=== PATIENT | female | born 1955 | race Caucasian/White ===

== ENCOUNTER → 2020-02-03 13:03 | Outpatient (BNVA) | payer MEDICARE, SELFPAY | PROVIDERS: Family Provider Family Medicine; PCP Family Medicine; Visit Provider Internal Medicine Rheumatology | DX: M18.0 Bilateral primary osteoarthritis of first carpometacarpal joints (principal); Z79.899 Other long term (current) drug therapy; Z11.59 Encounter for screening for other viral diseases; M19.041 Primary osteoarthritis, right hand; M19.042 Primary osteoarthritis, left hand; M17.0 Bilateral primary osteoarthritis of knee; G89.29 Other chronic pain; M54.5 Low back pain | CPT/HCPCS: 36415; 82306; 86431; 86480; 86704; 86803; 87340; 99204 ==

== ENCOUNTER 2020-02-06 11:02 | Outpatient (CLI) | payer MEDICARE, SELFPAY ==
--- NOTE | 2020-02-06 11:08 | XR_ITS ---
WS: [id number] Left foot, 3 views, 02/06/2020 Clinical Data: inflammatory arthritis Comparison: None. Findings: No fractures or dislocations are seen. There is a bunion at the head of the left first metatarsal. Th e remainder the joint spaces is normal. There is a small Achilles spur. XR/XR foot LT min 3V* [id number] Impression: Bunion at the head of the left first metatarsal.
--- NOTE | 2020-02-06 11:08 | XR_ITS ---
WS: [id number] Right foot, 3 views, 02/06/2020 Clinical Data: inflammatory arthritis Comparison: None. Findings: No fractures or dislocations are seen. There is a bunion at the head of the right first metatarsal. T here is osteoarthritic change of the articulations between the second and third metatarsals with the cuneiforms. There is a small Achilles spur. XR/XR foot RT min 3V* [id number] Impression: 1. Large bunion at head of the right first metatarsal. 2. Osteoarthritic changes at the bases of the right second and third metatarsal s.
--- NOTE | 2020-02-06 11:08 | XR_ITS ---
WS: [id number] Chest 2 views, 02/06/2020 Clinical Data: inflammatory arthritis Comparison: None. Findings: No nodules, masses or effusions are seen. The heart is normal. The pulmonary vascularity is not increased. No pneumonia or pneumothorax is seen. The aortic arch and descending aorta are minima lly tortuous. XR/XR chest 2V* [id number] Impression: Atherosclerosis.
--- NOTE | 2020-02-06 11:08 | XR_ITS ---
WS: [id number] Left hand, 3 views, 02/06/2020 Clinical Data: inflammatory arthritis Comparison: None. Findings: No fractures or dislocations are seen. The soft tissues are unremarkable. There is osteoarthritic eleonora nge of the left second through fourth DIP joints. There is osteoarthritic change at the base of the l eft first metacarpal as it articulates with the trapezium. There is osteoarthritic change of the left first IP joint. XR/XR hand LT min 3V* [id number] Impression: Osteoarthritis of the left second through fourth DIP joints and at the base of the left first metacarpal. Osteoarthritis of the IP joint of the left thumb.
--- NOTE | 2020-02-06 11:08 | XR_ITS ---
WS: [id number] Pelvis, AP view, 02/06/2020 Clinical Data: inflammatory arthritis Comparison: None. Findings: No fractures or dislocations are seen. The SI joints and pubic symphysis are intact. The soft tissues are not remarkable. The hips are normal. There is a large amount of fecal material in the ascending colon and rectum. XR/XR pelvis 1-2V* [id number] Impression: Negative AP pelvis.
--- NOTE | 2020-02-06 11:08 | XR_ITS ---
WS: [id number] Right hand, 3 views, 02/06/2020 Clinical Data: inflammatory arthritis Comparison: None. Findings: No fractures or dislocations are seen. The soft tissues are unremarkable. There is osteoa rthritic change of the right third and fourth DIP joints. XR/XR hand RT min 3V* [id number] Impression: Osteoarthritis of the right third and fourth DIP joints.
== END 2020-02-06 11:03 | disposition home or self-care (01) ==
LOC: RADWPI 11:07
PROVIDERS: Family Provider Family Medicine; PCP Family Medicine; Visit Provider Internal Medicine Rheumatology
DX: M19.90 Unspecified osteoarthritis, unspecified site (principal); I70.90 Unspecified atherosclerosis; M21.611 Bunion of right foot; M21.612 Bunion of left foot; M19.042 Primary osteoarthritis, left hand; M19.041 Primary osteoarthritis, right hand
CPT/HCPCS: 71046; 72170; 73130; 73630

== ENCOUNTER → 2020-03-31 10:49 | Outpatient (BNVA) | payer MEDICARE, SELFPAY | PROVIDERS: Family Provider Family Medicine; PCP Family Medicine; Visit Provider Internal Medicine Rheumatology | DX: Z79.899 Other long term (current) drug therapy (principal) | CPT/HCPCS: 36415; 80076; 82565; 85025; 85651; 86140 ==

== ENCOUNTER → 2020-04-05 11:13 | Outpatient (BNVA) | payer MEDICARE, BC, SELFPAY | PROVIDERS: Family Provider Family Medicine; PCP Family Medicine; Visit Provider Internal Medicine Rheumatology | DX: M06.041 Rheumatoid arthritis without rheumatoid factor, right hand (principal); M06.042 Rheumatoid arthritis without rheumatoid factor, left hand; M17.0 Bilateral primary osteoarthritis of knee; M19.041 Primary osteoarthritis, right hand; M19.042 Primary osteoarthritis, left hand; Z79.52 Long term (current) use of systemic steroids; Z79.899 Other long term (current) drug therapy | CPT/HCPCS: 99214 ==

== ENCOUNTER 2020-04-09 13:52 | Outpatient (CLI) | payer MEDICARE, OTHER, SELFPAY ==
--- NOTE | 2020-04-09 14:15 | XR_ITS ---
WS: [id number] SCREENING DEXA SCAN [employer] CLINICAL INFORMATION: screening for osteoporosis COMPARISON: None. FINDINGS: The L1-L4 bone mineral density measures 1.150 g/cm2. This corresponds to a T score score of -0.3 and Z score of 1.1. Left femoral neck bone mineral density measures 0.904 g/cm2. This corresponds to a T score of -0.8 an d Z score of 0.3. Right femoral neck bone mineral density measures 0.916 g/cm2. This corresponds to a T score -0.7of an d Z score of 0.4. Mean femoral neck bone mineral density measures 0.910 g/cm2. This corresponds to a T score of -0.8 an d Z score of 0.3. XR/XR DEXA axial skeleton* [id number] IMPRESSION: Normal bone mineralization. Patient's FRAX calculated 10 year probability for major osteoporotic fracture i s 16.4 % and osteoporotic hip fracture is 1.8%.
== END 2020-04-09 13:53 | disposition home or self-care (01) ==
LOC: RADWPI 13:58
PROVIDERS: Family Provider Family Medicine; PCP Family Medicine; Visit Provider Internal Medicine Rheumatology
DX: Z13.820 Encounter for screening for osteoporosis (principal)
CPT/HCPCS: 77080

== ENCOUNTER → 2020-07-07 08:26 | Outpatient (BNVA) | payer MEDICARE, BC, SELFPAY | PROVIDERS: Family Provider Family Medicine; PCP Family Medicine; Visit Provider Internal Medicine Rheumatology | DX: M06.041 Rheumatoid arthritis without rheumatoid factor, right hand (principal); M06.042 Rheumatoid arthritis without rheumatoid factor, left hand; M15.4 Erosive (osteo)arthritis; Z79.899 Other long term (current) drug therapy | CPT/HCPCS: 99214 ==

== ENCOUNTER → 2020-11-01 13:46 | Outpatient (BNVA) | payer MEDICARE, OTHER, SELFPAY | PROVIDERS: Family Provider Family Medicine; PCP Family Medicine; Visit Provider Internal Medicine Rheumatology | DX: M06.041 Rheumatoid arthritis without rheumatoid factor, right hand (principal); M06.042 Rheumatoid arthritis without rheumatoid factor, left hand; Z79.899 Other long term (current) drug therapy; M15.4 Erosive (osteo)arthritis; G89.29 Other chronic pain; M54.5 Low back pain | CPT/HCPCS: 99214 ==

== ENCOUNTER 2021-05-10 15:12 | Outpatient (CLI) | payer MEDICARE, OTHER, SELFPAY ==
--- NOTE | 2021-05-10 15:21 | US_ITS ---
WS: [id number] INDICATION: Swelling left clavicle TECHNIQUE: Ultrasound soft tissue left clavicle. FINDINGS: Ultrasound soft tissue left clavicle area of interest. No suspicious abnormalities in the a emily of concern. No cystic or solid lesions. US/US soft tissue/extremity [id number] IMPRESSION: No suspicious abnormalities in the area of concern.
== END 2021-05-10 15:13 | disposition home or self-care (01) ==
LOC: US 15:18
PROVIDERS: PCP Family Medicine; Visit Provider Family Medicine
DX: R22.1 Localized swelling, mass and lump, neck (principal)
CPT/HCPCS: 76882

== ENCOUNTER → 2022-02-23 13:38 | Outpatient (BNVA) | payer MEDICARE, OTHER, SELFPAY | PROVIDERS: PCP Family Medicine; Visit Provider Internal Medicine Rheumatology | DX: M06.041 Rheumatoid arthritis without rheumatoid factor, right hand (principal); M06.042 Rheumatoid arthritis without rheumatoid factor, left hand; Z79.899 Other long term (current) drug therapy; Z71.89 Other specified counseling; M15.9 Polyosteoarthritis, unspecified; K21.9 Gastro-esophageal reflux disease without esophagitis; E55.9 Vitamin D deficiency, unspecified | CPT/HCPCS: 80076; 82565; 85025; 86140; 99214 ==

== ENCOUNTER → 2022-05-31 09:21 | Outpatient (BNVA) | payer MEDICARE, OTHER, SELFPAY | PROVIDERS: PCP Family Medicine; Visit Provider Internal Medicine Rheumatology | DX: M06.041 Rheumatoid arthritis without rheumatoid factor, right hand (principal); M06.042 Rheumatoid arthritis without rheumatoid factor, left hand; M15.4 Erosive (osteo)arthritis; Z79.899 Other long term (current) drug therapy; Z71.89 Other specified counseling; E55.9 Vitamin D deficiency, unspecified; K21.9 Gastro-esophageal reflux disease without esophagitis | CPT/HCPCS: 99214 ==

== ENCOUNTER → 2022-06-22 09:04 | Outpatient (BNVA) | payer MEDICARE, OTHER, SELFPAY | PROVIDERS: PCP Family Medicine; Visit Provider Family Medicine | DX: Z71.89 Other specified counseling (principal); M18.0 Bilateral primary osteoarthritis of first carpometacarpal joints; M06.041 Rheumatoid arthritis without rheumatoid factor, right hand; M06.042 Rheumatoid arthritis without rheumatoid factor, left hand; Z79.899 Other long term (current) drug therapy | CPT/HCPCS: 80076; 82565; 85025 ==

== ENCOUNTER → 2022-09-06 09:39 | Outpatient (BNVA) | payer MEDICARE, OTHER, SELFPAY | PROVIDERS: PCP Family Medicine; Visit Provider Internal Medicine Rheumatology | DX: M06.041 Rheumatoid arthritis without rheumatoid factor, right hand (principal); M06.042 Rheumatoid arthritis without rheumatoid factor, left hand; Z79.899 Other long term (current) drug therapy; M15.4 Erosive (osteo)arthritis; Z71.89 Other specified counseling; Z79.52 Long term (current) use of systemic steroids; G89.4 Chronic pain syndrome; M54.50 Low back pain, unspecified | CPT/HCPCS: 72040; 72072; 72100; 73562; 99214 ==

== ENCOUNTER → 2022-10-30 08:55 | Outpatient (BNVA) | payer MEDICARE, OTHER, SELFPAY | PROVIDERS: PCP Family Medicine; Visit Provider Family Medicine | DX: M06.041 Rheumatoid arthritis without rheumatoid factor, right hand (principal); M06.042 Rheumatoid arthritis without rheumatoid factor, left hand; Z79.899 Other long term (current) drug therapy | CPT/HCPCS: 80076; 82565; 85025; 86140 ==

== ENCOUNTER → 2022-12-06 09:23 | Outpatient (BNVA) | payer MEDICARE, OTHER, SELFPAY | PROVIDERS: PCP Clinical Nurse Specialist Adult Health; Visit Provider Internal Medicine Rheumatology | DX: M06.041 Rheumatoid arthritis without rheumatoid factor, right hand (principal); Z79.899 Other long term (current) drug therapy; Z71.89 Other specified counseling; M15.4 Erosive (osteo)arthritis; M06.042 Rheumatoid arthritis without rheumatoid factor, left hand | CPT/HCPCS: 99214 ==

== ENCOUNTER 2022-12-19 10:17 | Outpatient (CLI) | payer MEDICARE, OTHER, SELFPAY ==
--- NOTE | 2022-12-19 10:32 | XR_ITS ---
WS: [id number] Exam: XR abdomen min 2V [id number] Date/Time of Exam: 12/19/2022 10:57 AM Reason For Exam: left flank pain, vomiting No bowel obstruction or free air. No sign of organ enlargement. Regional bony elements are intact. XR/XR abdomen min 2V [id number] IMPRESSION: 1. No acute abdominal finding.
== END 2022-12-19 10:18 | disposition home or self-care (01) ==
PROVIDERS: PCP Clinical Nurse Specialist Adult Health; Visit Provider Clinical Nurse Specialist Adult Health
DX: K59.00 Constipation, unspecified (principal); R10.9 Unspecified abdominal pain; R11.10 Vomiting, unspecified; E86.0 Dehydration
CPT/HCPCS: 74019; 80053; 81000; 85025; 85651; 86140; 87086

== ENCOUNTER 2022-12-21 20:42 | Emergency (ER) | payer MEDICARE, OTHER, SELFPAY ==
[2022-12-21 21:15] VITALS: BMI 31.0
[2022-12-21 21:18] VITALS: BP 122/67; PULSE 71; RESP 16; TEMP 36.4; O2SAT 99
[2022-12-21] MEDS: lactated ringers 1,000 ML 999 ML IV (22:04)
[2022-12-21] MEDS: potassium bicarb 25 mEq Tablet 50 MEQ PO (22:04)
[2022-12-21] MEDS: ondansetron 2 mg/ML SDV 2 mL 4 MG IVP (22:04)
--- NOTE | 2022-12-21 22:05 | ED_ITS ---
HPI - Recheck/Abnormal Lab/Rx General: Chief Complaint: Recheck/Abnormal Lab/Rx Stated Complaint: Doc called Time Seen by Provider: 12/21/22 21:50 Source: patient and family Mode of arrival: ambulatory Limitations: no limitations History of Present Illness: Patient apparently was referred to the emergency department by her primary care doctor. Apparently she had some laboratories obtained earlier today which showed a potassium that was low and she was referred for care. She apparently had been sick within the week or so prior which included some vomiting and some diarrhea. Apparently had been feeling weak and tired and had some issues with low blood pressure and had most of her antihypertensive discontinued this week.History of multiple sclerosis history of multiple sclerosis she denies any fevers or chills abdominal pain currently. She states she has muscle cramps and achiness. She states she feels tired and not as energetic as normal. She states there was no blood in her stools. No black tarry stools. She has not been out of the country on travel, been exposed to antibiotics recently, had any recent illness exposure. She has rheumatoid arthritis and takes medications for that condition. Does not have a history of taking potassium or magnesium or other electrolyte replacements. No chest pain palpitations etc. Associated symptoms: malaise Review of Systems Const: Reports: malaise; Denies: fever(s) or chills Eyes: Denies: change in vision ENMT: Denies: throat pain, odynophagia, nasal discharge or nasal congestion Card: Denies: chest pain, palpitations, irregular heart rhythm, syncope or pre-syncope Resp: Denies: dyspnea, productive cough or non-productive cough GI: Reports: vomiting and diarrhea; Denies: hematemesis, hematochezia or melena : Reports: oliguria; Denies: flank pain, difficulty voiding, dysuria or urinary frequency Musc: Reports: muscle cramps; Denies: neck pain, back pain, extremity pain or extremity swelling Skin/Breast: Denies: rash or pruritus Neuro: Denies: headache(s), numbness in extremities or weakness in extremities PFS ED PFSH: Medical History Erosive osteoarthritis of both hands High risk medication use Hypertension Immunization counseling Inflammatory arthritis Joint pain Osteoarthritis of carpometacarpal (CMC) joint of both thumbs Osteoarthritis of hands, bilateral Osteoarthritis of knees, bilateral Seronegative rheumatoid arthritis of both hands Surgical History History of shoulder surgery left Family History Other Bleeding disorder Cancer Diabetes Family history of premature coronary artery disease Hyperlipidemia Stroke Denies family history of Rheumatoid arthritis Lupus CAD (coronary artery disease) Anesthesia complication Social History Smoking and tobacco status: never smoked Alcohol intake: never Substance/Drug Use: never Physical Exam Narrative: EXAM NARRATIVE: The patient is alert and in no acute distress. She does not appear to be acutely ill at this point. She answers questions in a goal-directed fashion. Const: COMMON NORMALS: no acute distress, average body habitus and patient oriented x3 GENERAL APPEARANCE: cooperative NUTRITIONAL APPEARANCE: overweight ORIENTATION/CONSCIOUSNESS: Yes awake HENMT: COMMON NORMALS: normocephalic, Normal nasal mucous membranes and turbinates present, moist oral mucous membranes and oropharynx normal HEAD & SCALP: normocephalic NOSE: Normal nasal mucous membranes and turbinates present Eye: COMMON NORMALS: Equal, round and reactive pupils present, EOMs intact bilaterally and conjunctivae normal CONJUNCTIVA: Yes conjunctivae normal PUPIL: Yes Equal, round and reactive pupils present Neck/C-Spine: COMMON NORMALS: full ROM, no lymphadenopathy and no JVD Chest: COMMONS NORMALS: normal inspection of the chest Resp: COMMON NORMALS: normal respiratory effort, No retractions, No use of accessory muscles and clear to auscultation bilaterally AUSCULTATION: clear to auscultation bilaterally Cardio: COMMON NORMALS: no JVD, regular rate, regular rhythm, No murmurs present (Cardio) and Peripheral pulses 2+ throughout RATE: regular rate RHYTHM: regular rhythm PERIPHERAL PULSES: Peripheral pulses 2+ throughout GI: COMMON NORMALS: Normal to inspection, nondistended, normoactive bowel sounds present, Soft to palpation, non-tender, No hepatosplenomegaly present and no masses PALPATION: Yes Soft to palpation and Yes No hepatosplenomegaly present : COMMON NORMALS: Yes no CVA tenderness BLADDER/KIDNEY EXAM: Yes no CVA tenderness Back/Pelvis: COMMON NORMALS: no CVA tenderness, thoracic and lumbar spine normal to inspection, no thoracic nor lumbar tenderness, thoraco-lumbar ROM normal and straight leg raise negative bilaterally Extremity: COMMON NORMALS: normal to inspection, capillary refill normal, no calf tenderness and no pedal edema NARRATIVE EXTREMITY EXAM: She has generalized muscle tenderness to palpation. Neuro: COMMON NORMALS: patient oriented x3, moves all extremities, no focal motor deficits and no sensory deficits noted Psych: COMMON NORMALS: mental status grossly normal Skin: COMMON NORMALS: no rashes or lesions noted, no wounds, turgor normal and no jaundice GENERAL SKIN EXAM: no rashes or lesions noted and turgor normal Course Reevaluation(s): Reevaluation #1: Patient was reevaluated. She states subjectively she feels much better and actually looks subjectively better. Repeat chemistry here revealed her potassium here at our lab was 3.1 which is certainly possible for laboratory variance but certainly reassuring in the fact that we gave her an extra 50 mill equivalents p.o. and another 15 mill equivalents in her lactated Ringer's. We will continue oral replacement for the next week. She does have some elevations in her transaminases and alk phos which are likely due to her acute illness. She has no abdominal tenderness she has normal total bilirubin. She has not had any history of biliary colic or any other concerning findings for gallbladder disease at this time. She is stable to be discharged to continue her oral potassium replacement and she has an appoint with her primary care doctor next Sunday at that time she should have her liver function and alk phos reevaluated as well as her electrolytes and then make a determination whether she needs to continue any of her antihypertensives. Time: 23:07 Vital Signs: Vital signs: Vital Signs Temperature 97.6 F 12/21/22 21:18 Pulse Rate 71 12/21/22 21:18 Respiratory Rate 16 12/21/22 21:18 Blood Pressure 122/67 12/21/22 21:18 Pulse Oximetry 99 12/21/22 21:18 Oxygen Delivery Me thod Room Air 12/21/22 21:18 MDM - Recheck/Abnormal Lab/Rx Medical Decision Making This patient was referred to the emergency department because of concerns about low potassium. She been recently ill with some vomiting and diarrhea and had been on a number of antihypertensive medications including hydrochlorothiazide and lisinopril long others. She had not had any issues with palpitations or syncope presyncope etc. Clinical examination here revealed her to be stable without any focal findings on clinical examination electrocardiogram revealed no evidence of proarrhythmia or ST's segment changes or flattening of T waves. She was given the benefit of oral potassium 50 mEq as well as a liter of lactated Ringer's with its attendant potassium concentration. She remained stable without any arrhythmias, clinically improved and suitable to be discharged to continue oral potassium replacement with primary care follow- up. She will need a recheck of her liver tests and electrolytes this coming Sunday at her primary care office. We also discussed return precautions in detail. They were appreciative of care and stable to be discharged. Medical Records I reviewed the patient's medical records. Prior chemistry from today was noted with a potassium of 2.7. Lab Data I reviewed the patient's lab results. 12/21/22 22:08 12/21/22 22:08 Laboratory Results Sodium 131 mmol/L (136-145) L 12/21/22 22:08 Potassium 3.1 mmol/L (3.5-5.1) L 12/21/22 22:08 Chloride 93 mmol/L (98-107) L 12/21/22 22:08 Carbon Dioxide 26 mmol/L (22-29) 12/21/22 22:08 Anion Gap 15.1 (5-19) 12/21/22 22:08 BUN 22 mg/dL (8-23) 12/21/22 22:08 Creatinine 0.8 mg/dL (0.5-0.9) 12/21/22 22:08 GFR Calculation 71.1 mL/min (90-130) L 12/21/22 22:08 Glucose 91 mg/dL (65-115) 12/21/22 22:08 Calculated Osmolality 275 mOsm/kg (285-295) L 12/21/22 22:08 Calcium 8.8 mg/dL (8.5-10.5) 12/21/22 22:08 Magnesium 2.2 mg/dL (1.7-2.3) 12/21/22 22:08 Total Bilirubin 0.6 mg/dL (0.15-1.2) 12/21/22 22:08 AST 59 U/L (0-32) H 12/21/22 22:08 ALT 48 U/L (0-33) H 12/21/22 22:08 Alkaline Phosphatase 137 U/L (35-105) H 12/21/22 22:08 Creatine Kinase 66 U/L (26-192) 12/21/22 22:08 Total Protein 7.4 g/dL (6.6-8.7) 12/21/22 22:08 Albumin 4.1 g/dL (3.5-5.2) 12/21/22 22:08 Globulin 3.3 g/dL (1.3-4.6) 12/21/22 22:08 EKG Data EKG 1: I personally reviewed and interpreted this EKG as follows: Interpretation: Contemporaneous review of resting EKG reveals ventricular rate is 76 bpm. IA interval is normal, QRS duration is normal, corrected QT intervals normal. [place] is normal. Consistent with sinus rhythm with some baseline ear irregularity however no evidence of ongoing ischemia at this time. No prior tracing within our system for comparison. Discharge Plan Discharge Patient Disposition: Home Clinical Impression: Hypokalemia, Transaminitis Condition: Stable Prescriptions: New potassium chloride 10 mEq capsule, extended release 10 meq PO DAILY Qty: 7 0RF No Action calcium carbonate [Calcium 600] 600 mg calcium (1,500 mg) tablet 600 mg PO DAILY doxycycline monohydrate 100 mg capsule 100 mg PO BID Qty: 14 0RF cholecalciferol (vitamin D3) 50 mcg (2,000 unit) capsule 50 mcg PO DAILY hydroxychloroquine 200 mg tablet 200 mg PO BID Qty: 60 3RF Hold Instructions: Doctor's Order omeprazole 20 mg capsule,delayed release(DR/EC) 20 mg PO DAILY Qty: 30 3RF prednisone 5 mg tablet 5 mg PO DAILY Qty: 90 1RF sulfasalazine 500 mg tablet 1 g PO BID Qty: 120 3RF Hold Instructions: Doctor's Order Rx Instructions: take 2tabs in am and 1 pm x 1 week then go to 2 tabs twice daily. give with food (meal/snack) lisinopril 40 mg tablet 40 mg PO DAILY Qty: 30 3RF Hold Instructions: Doctor's Order clonidine HCl 0.1 mg tablet 0.1 mg PO BID PRN (Reason: hypertensive emergency) Qty: 60 0RF Rx Instructions: may use for Blood pressure greater than 180/100. hydrochlorothiazide 25 mg tablet 25 mg PO DAILY Qty: 90 3RF Hold Instructions: Doctor's Order atorvastatin 40 mg tablet 40 mg PO DAILY Qty: 90 3RF levothyroxine 112 mcg tablet See Rx Instructions .ROUTE .COMPLEX Qty: 90 1RF Dose Instruction: TAKE 1 TABLET BY MOUTH EVERY DAY Rx Instructions: TAKE 1 TABLET BY MOUTH EVERY DAY lorazepam 0.5 mg tablet 0.5 mg PO BID PRN (Reason: anxiety, muscle spasm) Qty: 30 0RF tramadol 50 mg tablet 50 mg PO TID Qty: 90 3RF Discharge Orders: Discharge ED (Routine); Ordered 12/21/22 Ordered By: Noel Hunt Referrals: Gil Hatfield NP [Primary Care Provider] - 12/25/22 (Follow-up from hypokalemia as well as transaminitis.) Discharge Diet: Usual diet Discharge Activity: Increase activity as tolerated Patient Instructions: Opioid Safety, Pain Management Activity Restrictions/Additional Instructions: We have replaced your potassium in the emergency department. We have also provided a prescription to take additional potassium pill daily for the next week. We also recommend that you see your doctor next Sunday as scheduled for repeat blood test. If you develop any persistent symptoms such as fevers abdominal pain nausea vomiting diarrhea heart palpitations etc. return to this or the nearest emergency department for reevaluation. Make sure you drink plenty of water on a daily basis and we recommend an additional 16 to 32 ounces of sports drinks daily for the next week. Coding Level of Care Code ED Private Duty Nurse for Maura Costello
[2022-12-21 22:17] LABS: Hematocrit 36.6 % (37.0-47.0); Hemoglobin 12.8 g/dL (11.5-15.3); Mean Corpuscular Hemoglobin 31.8 pg (28.0-34.0); Mean Platelet Volume 10.5 fL (7.4-10.4); Platelet Count 268 10^3/cmm (130-400); Red Blood Count 4.02 10^6/uL (4.1-5.3); Red Cell Distribution Width 11.9 % (12.1-15.1)
--- NOTE | 2022-12-21 22:21 | ECG_ITS ---
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 Measurements Intervals [place] Rate: 76 P: 81 VA: 175 QRS: 27 QRSD: 108 T: 59 QT: 389 QTc: 439 Interpretive Statements SINUS RHYTHM MODERATE ST DEPRESSION [0.05+ mV ST DEPRESSION] No previous ECG available for comparison Electronically Signed On 12-22-2022 8:33:03 CDT by Jeremiah Badillo M.D. [id number]
[2022-12-21 22:38] LABS: Alanine Aminotransferase 48 U/L (0-33); Albumin Level 4.1 g/dL (3.5-5.2); Alkaline Phosphatase 137 U/L (35-105); Anion Gap 15.1 (5-19); Aspartate Amino Transferase 59 U/L (0-32); Blood Urea Nitrogen 22 mg/dL (8-23); Calcium 8.8 mg/dL (8.5-10.5); Carbon Dioxide 26 mmol/L (22-29); Chloride 93 mmol/L (98-107); Globulin 3.3 g/dL (1.3-4.6); Glomerular Filtration Rate 71.1 mL/min (90-130); Glucose 91 mg/dL (65-115); Magnesium 2.2 mg/dL (1.7-2.3); Osmolality Calculated 275 mOsm/kg (285-295); Potassium 3.1 mmol/L (3.5-5.1); Sodium 131 mmol/L (136-145); Total Bilirubin 0.6 mg/dL (0.15-1.2); Total Protein 7.4 g/dL (6.6-8.7)
[2022-12-21 22:53] LABS: Creatine Phosphokinase 66 U/L (26-192)
[2022-12-21 23:11] LABS: Slide Review Slide Review Perform
[2022-12-21 23:18] VITALS: BP 127/62; PULSE 67; RESP 25; O2SAT 95
== END 2022-12-21 23:24 | disposition home or self-care (01) ==
PROVIDERS: Emergency Provider Emergency Medicine; PCP Clinical Nurse Specialist Adult Health
DX: E87.6 Hypokalemia (principal); R74.01 Elevation of levels of liver transaminase levels; I10 Essential (primary) hypertension
CPT/HCPCS: 80053; 82550; 83735; 85007; 85025; 86140; 93005; 96374; 99284; J2405; J7120

== ENCOUNTER 2022-12-24 09:53 | Observation (INO) | payer MEDICARE, OTHER, SELFPAY ==
[2022-12-24] VITALS (9 sets, daily range): BP systolic 125–198; BP diastolic 71–93; PULSE 73–88; RESP 10–18; TEMP 36.8; O2SAT 95–98; BMI 31.0
--- NOTE | 2022-12-24 10:26 | CTR_ITS ---
PROCEDURE INFORMATION: Exam: CT Head Without Contrast Exam date and time: 12/24/2022 10:27 AM Age: 67 years old Clinical indication: Stroke-like symptoms; Other: Symptoms of acute stroke TECHNIQUE: Imaging protocol: Computed tomography of the head without contrast. Radiation optimization: All CT scans at this facility use at least one of these dose optimization techniques: automated exposure control; mA and/or kV adjustment per patient size (includes targeted exams where dose is matched to clinical indication); or iterative reconstruction. Other technique: STROKE PROTOCOL was implemented. REPORTING DATA: Count of CT and Cardiac NM exams in prior 12 months: This patient has received 0 known CTs and 0 known cardiac nuclear medicine studies in the 12 months prior to the current study. COMPARISON: CT cervical spin wo con* [id number] 01/12/2016 8:19 AM RADIATION DOSE METRICS: Total DLP (mGy-cm): 1028.98 FINDINGS: Brain: No intracranial hemorrhage. No mass effect, edema or midline shift. There are vague areas of decreased attenuation within the periventricular white matter likely secondary to chronic microvascular changes. Mild age related cerebral volume loss resulting in prominence of cortical sulci. Cerebral ventricles: Unremarkable for age and degree of cerebral volume loss. Paranasal sinuses: Visualized sinuses are unremarkable. No fluid levels. Mastoid air cells: Visualized mastoid air cells are well aerated. Bones/joints: Unremarkable. No acute fracture. Soft tissues: Unremarkable. CT/CT head thrombolytic [id number] IMPRESSION: No acute intracranial abnormality. ASSESSMENT: ASPECTS ([place] Stroke Program Early CT Score) is 10.
--- NOTE | 2022-12-24 10:28 | W.ED.NEUROSD ---
HPI - Neuro Symptoms/Deficit General: Chief Complaint: Neuro Symptoms/Deficit Stated Complaint: abn labs Time Seen by Provider: 12/24/22 10:26 History of Present Illness: Mouna is a 67-year-old female that presents to the emergency department with reports of high blood pressure,, headache, left-sided weakness and change in her vision. Patient is unable to further specify on her vision changes. Onset of the symptoms 829. Patient reports she was recently seen for hypokalemia and treated. At that time she was taken off several of her medications. This included her antihypertensives and antilipid therapy. Associated symptoms: Reports headache(s) and malaise; Deny chest pain, nausea or vomiting Review of Systems General: Reports: 10 or more systems reviewed and unremarkable except in HPI and below Const: Reports: fatigue and malaise; Denies: fever(s), chills, change in appetite or change in weight Eyes: Denies: change in vision, eye discomfort, eye discharge or eye redness ENMT: Denies: throat pain, enlarged tonsils, odynophagia, hoarseness, ear or mastoid pain, ear discharge, change in hearing, tinnitus, nasal discharge, nasal congestion, post nasal drip or sinus pain Card: Denies: chest pain, palpitations, irregular heart rhythm, edema, dyspnea on exertion, orthopnea or leg pain with exertion Resp: Denies: dyspnea, productive cough, non-productive cough, wheezing, stridor or chest congestion GI: Denies: abdominal pain, nausea, vomiting, dysphagia, diarrhea, constipation, bloating, GI cramping or hematochezia : Denies: flank pain, difficulty voiding, dysuria, urinary frequency, urinary urgency, urinary hesitancy, oliguria or hematuria Musc: Denies: neck pain, back pain, extremity pain, joint pain, joint swelling, joint redness, joint warmth or muscle weakness Skin/Breast: Denies: rash, pruritus, erythema, photosensitivity or new lesions Neuro: Reports: headache(s), weakness in extremities, lack of coordination and difficulty walking; Denies: numbness in extremities, sensory changes, frequent falls, dizziness, confusion, Slurred speech present, difficulty communicating thoughts, seizure-like activity or involuntary movements Endo: Denies: polyuria, polydipsia or tired all the time [place]/Lymph: Denies: easy bruising or easy bleeding PFSH ED PFSH: Medical History Erosive osteoarthritis of both hands High risk medication use Hypertension Immunization counseling Inflammatory arthritis Joint pain Osteoarthritis of carpometacarpal (CMC) joint of both thumbs Osteoarthritis of hands, bilateral Osteoarthritis of knees, bilateral Seronegative rheumatoid arthritis of both hands Surgical History History of shoulder surgery left Family History Other Bleeding disorder Cancer Diabetes Family history of premature coronary artery disease Hyperlipidemia Stroke Denies family history of Rheumatoid arthritis Lupus CAD (coronary artery disease) Anesthesia complication Social History Smoking and tobacco status: never smoked Alcohol intake: never Substance/Drug Use: never NIH stroke score NIHSS: Level Of Consciousness - 1a: 0 Level Of Consciousness Questions - 1b: Both Correct Level Of Consciousness Commands - 1c: Both Correct Best Gaze - 2: Normal Visual G[place] - 3: No Visual Loss Facial Palsy - 4: Normal Motor Arm Right - 5: No Drift Motor Arm Left - 5: No Drift Motor Leg Right - 6: No Drift Motor Leg Left - 6: Drift Limb Ataxia - 7: Present In One Limb Best Language - 9: No Aphasia Dysarthia - 10: Mild/Moderate Dysarthia Extinction And Inattention - 11: 0 Physical Exam Const: COMMON NORMALS: no acute distress and patient oriented x3 GENERAL APPEARANCE: cooperative ORIENTATION/CONSCIOUSNESS: Yes awake, Yes oriented to person, Yes oriented to place and Yes oriented to time HENMT: COMMON NORMALS: normocephalic and atraumatic HEAD & SCALP: normocephalic and atraumatic FACE & SINUS: normal facial exam MOUTH: Normal oral and palatal mucosa present THROAT: posterior oropharynx normal Eye: COMMON NORMALS: Equal, round and reactive pupils present, EOMs intact bilaterally, conjunctivae normal and no scleral icterus GENERAL EYE: appearance normal, both eyes and all related structures ALIGNMENT: Yes alignment normal PERIORBITAL: periorbital findings normal CONJUNCTIVA: Yes conjunctivae normal PUPIL: Yes Equal, round and reactive pupils present Neck/C-Spine: COMMON NORMALS: full ROM GENERAL: Yes normal visual inspection Lymph: LYMPHATIC: no lymphadenopathy noted Chest: COMMONS NORMALS: normal inspection of the chest Breast/axilla inspection: Yes no chest deformity, asymmetry, normal contours, no nodules, masses, tenderness Resp: COMMON NORMALS: normal respiratory effort, No retractions, No use of accessory muscles and clear to auscultation bilaterally EFFORT & INSPECTION: Yes able to speak in complete sentences and Yes symmetric chest movement AUSCULTATION: clear to auscultation bilaterally Cardio: COMMON NORMALS: regular rate, regular rhythm and Peripheral pulses 2+ throughout RATE: regular rate RHYTHM: regular rhythm PERIPHERAL PULSES: Peripheral pulses 2+ throughout GI: COMMON NORMALS: Normal to inspection, nondistended, normoactive bowel sounds present, Soft to palpation, non-tender and No hepatosplenomegaly present INSPECTION: Yes normal to inspection AUSCULTATION: Yes normoactive bowel sounds PALPATION: Yes Soft to palpation and Yes No hepatosplenomegaly present RECTAL EXAM: deferred Extremity: COMMON NORMALS: normal to inspection GENERAL: Yes normal exam except as noted Neuro: COMMON NORMALS: patient oriented x3 SENSORIUM/ORIENTATION: Yes oriented to person, Yes oriented to place and Yes oriented to time CRANIAL NERVES: Yes CN normal except as noted SPEECH: speech normal and Other neuro speech findings (Repetitive speech) GAIT: Yes Other gait observations present (Deferred but has ataxia of the left lower extremity) Right pupil size (mm): 3 Left pupil size (mm): 3 Psych: COMMON NORMALS: mental status grossly normal, Normal thought process present, cooperative, activity/motor behavior normal, denies homicidal ideation and denies suicidal ideation THOUGHT PROCESS: Normal thought process present Skin: COMMON NORMALS: no rashes or lesions noted, no wounds and turgor normal GENERAL SKIN EXAM: no rashes or lesions noted and turgor normal Course Vital Signs: Vital signs: Vital Signs Temperature 98.3 F 12/24/22 10:03 Pulse Rate 82 12/24/22 15:11 Respiratory Rate 14 12/24/22 15:11 Blood Pressure 173/85 12/24/22 15:11 Pulse Oximetry 98 12/24/22 15:11 Oxygen Delivery Me thod Room Air 12/24/22 15:11 MDM - Neuro Symptoms/Deficit Medical Decision Making Stroke activation 1025 Laboratory studies have been obtained an EKG completed at 1035. EKG reveals a ventricular rate of 79 beats a minute and QTc of 409. It reveals a sinus rhythm without ectopy, ST elevation or depression. Laboratory studies reveal no anemias, leukocytosis, electrolyte disturbance. Urinalysis.... CT complete 1040 Dr Nicole to bedside 1100. He is given her an NIH of 0. He recommends echo and carotid ultrasound. Echo was completed and pending. Ultrasound of the carotids revealed a questionable occlusion. 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 I spoke with Dr. Nicole again who is recommended Plavix and aspirin, aspirin is already been given along with a KYREE that can be done tomorrow, cardiology consult, hospitalist admission, and hypercoagulability labs. I have spoken with Dr. Shrestha as well as Dr. Badillo. Orders have been placed. Patient has been updated and all questions were answered Lab Data 12/24/22 10:13 12/24/22 10:[address] 12/24/22 10:26 IMPRESSION: No acute intracranial abnormality. ASSESSMENT: ASPECTS ([place] Stroke Program Early CT Score) is 10. Carotid Doppler Study 12/24/22 11:19 IMPRESSION: 1. Mild stenosis involving the origin of the right and left ICA (less than 50%). 2. There is evidence of turbulent flow with more elevated systolic flow velocities more distally within the right and left ICA that may be due to tortuosity of the vessels or more significant stenosis (50-69%). Consider CTA of the neck for further evaluation. 3. Findings inconclusive for left external carotid artery stenosis which can also be reassessed on CTA of the neck. REFERENCES: SRU CRITERIA. The degree of internal carotid artery stenosis is based on criteria defined by the Society of Radiologists in Ultrasound (SRU). Normal is no stenosis. Mild is less than 50% stenosis. Moderate is 50-69% stenosis. Severe is greater than 69% stenosis to near occlusion. Near occlusion is a markedly narrowed lumen. Total occlusion is no detectable patent lumen. Head/Neck CTA 12/24/22 13:48 IMPRESSION: 1. Occluded intracranial segment left ICA. 2. Remainder of the CT of the brain is unremarkable. IMPRESSION: Occluded left ICA just distal to its origin. REFERENCES: NASCET CRITERIA. The degree of stenosis in the cervical segment of the internal carotid artery is based on NASCET criteria. Normal is no stenosis. Mild is less than 50% stenosis. Moderate is 50-69% stenosis. Severe is 70% to 99% stenosis. Total occlusion is no detectable patent lumen. ADDENDUM: 12/24/22 1514 THIS REPORT CONTAINS FINDINGS THAT MAY BE CRITICAL TO PATIENT CARE. The findings were verbally communicated via telephone conference with TRISHA STEPHEN at 3:12 PM CDT on 12/24/2022. The findings were acknowledged and understood. Laboratory Results WBC 8.9 10^3/uL (4.0-10.0) 12/24/22 10:13 RBC 3.85 10^6/uL (4.1-5.3) L 12/24/22 10:13 Hgb 12.2 g/dL (11.5-15.3) 12/24/22 10:13 Hct 36.1 % (37.0-47.0) L 12/24/22 10:13 MCV 93.8 fl (81-99) 12/24/22 10:13 MCH 31.7 pg (28.0-34.0) 12/24/22 10:13 MCHC 33.8 g/dL (30.0-36.0) 12/24/22 10:13 RDW 12.0 % (12.1-15.1) L 12/24/22 10:13 Plt Count 389 10^3/cmm (130-400) 12/24/22 10:13 MPV 9.3 fL (7.4-10.4) 12/24/22 10:13 Neut % (Auto) 35.7 % 12/24/22 10:13 Lymph % (Auto) 49.0 % 12/24/22 10:13 [place] % (Auto) 13.8 % 12/24/22 10:13 Eos % (Auto) 0.0 % 12/24/22 10:13 Baso % (Auto) 0.6 % 12/24/22 10:13 Neut # (Auto) 3.19 10^3/uL (1.8-7.7) 12/24/22 10:13 Lymph # (Auto) 4.4 10^3/uL (0.8-4.8) 12/24/22 10:13 [place] # (Auto) 1.2 10^3/uL (0.2-0.9) H 12/24/22 10:13 Eos # (Auto) 0.0 10^3/uL (0.0-0.8) 12/24/22 10:13 Baso # (Auto) 0.1 10^3/uL (0.0-0.1) 12/24/22 10:13 Nucleated RBC % (auto) 0 % 12/24/22 10:13 Nucleated RBCs # 0.0 /100WBC 12/24/22 10:13 PT 12.90 SECONDS (12.1-14.9) 12/24/22 10:13 INR 0.95 (0.8-1.2) 12/24/22 10:13 APTT 33.1 SECONDS (23.9-36.7) 12/24/22 10:13 Sodium 138 mmol/L (136-145) 12/24/22 10:13 Potassium 3.7 mmol/L (3.5-5.1) 12/24/22 10:13 Chloride 101 mmol/L (98-107) 12/24/22 10:13 Carbon Dioxide 26 mmol/L (22-29) 12/24/22 10:13 Anion Gap 14.7 (5-19) 12/24/22 10:13 BUN 9 mg/dL (8-23) 12/24/22 10:13 Creatinine 0.6 mg/dL (0.5-0.9) 12/24/22 10:13 GFR Calculation 99.1 mL/min (90-130) 12/24/22 10:13 Glucose 99 mg/dL (65-115) 12/24/22 10:13 POC Glucose 108 mg/dL (70-110) 12/24/22 10:33 Calculated Osmolality 285 mOsm/kg (285-295) 12/24/22 10:13 Calcium 8.9 mg/dL (8.5-10.5) 12/24/22 10:13 Total Bilirubin 0.3 mg/dL (0.15-1.2) 12/24/22 10:13 AST 49 U/L (0-32) H 12/24/22 10:13 ALT 37 U/L (0-33) H 12/24/22 10:13 Alkaline Phosphatase 114 U/L (35-105) H 12/24/22 10:13 Total Protein 6.8 g/dL (6.6-8.7) 12/24/22 10:13 Albumin 3.8 g/dL (3.5-5.2) 12/24/22 10:13 Globulin 3.0 g/dL (1.3-4.6) 12/24/22 10:13 Urine Color Light yellow (Yellow) 12/24/22 11:20 Urine Appearance Clear (CLEAR) 12/24/22 11:20 Urine pH 8 (5-7) H 12/24/22 11:20 Ur Specific [place] 1.010 (1.005-1.030) 12/24/22 11:20 Urine Protein Neg (Negative) 12/24/22 11:20 Urine Glucose (UA) Norm (Normal) 12/24/22 11:20 Urine Ketones Negative (Negative) 12/24/22 11:20 Urine Blood Neg (Negative) 12/24/22 11:20 Urine Nitrate Negative (Negative) 12/24/22 11:20 Urine Bilirubin Neg (Negative) 12/24/22 11:20 Prot Sulfosalicylic Acd Negative (Negative) 12/24/22 11:20 Urine Urobilinogen Norm mg/dL (Negative) 12/24/22 11:20 Ur Leukocyte Esterase Negative (Negative) 12/24/22 11:20 Urine Opiates Screen Negative ng/mL (Negative) 12/24/22 11:20 Ur Barbiturates Screen Negative ng/mL (Negative) 12/24/22 11:20 Ur Phencyclidine Scrn Negative ng/mL (Negative) 12/24/22 11:20 Ur Amphetamines Screen Negative ng/mL (Negative) 12/24/22 11:20 U Benzodiazepines Scrn Negative ng/mL (Negative) 12/24/22 11:20 Urine Cocaine Screen Negative ng/mL (Negative) 12/24/22 11:20 U Marijuana (THC) Screen Negative ng/mL (Negative) 12/24/22 11:20 Discharge Plan Discharge Condition: Stable Prescriptions: No Action doxycycline monohydrate 100 mg capsule 100 mg PO BID Qty: 14 0RF Rx Instructions: for 7 days (rx filled 12/20/22) hydroxychloroquine 200 mg tablet 200 mg PO BID Qty: 60 3RF Hold Instructions: Doctor's Order Rx Instructions: medication on hold as of 12/21/22 per pt omeprazole 20 mg capsule,delayed release(DR/EC) 20 mg PO DAILY Qty: 30 3RF prednisone 5 mg tablet 5 mg PO DAILY Qty: 90 1RF Rx Instructions: medication on hold as of 12/21/22 per pt lisinopril 40 mg tablet 40 mg PO DAILY Qty: 30 3RF Hold Instructions: Doctor's Order Rx Instructions: medication on hold as of 12/21/22 per pt clonidine HCl 0.1 mg tablet 0.1 mg PO BID PRN (Reason: hypertensive emergency) Qty: 60 0RF Rx Instructions: may use for Blood pressure greater than 180/100. hydrochlorothiazide 25 mg tablet 25 mg PO DAILY Qty: 90 3RF Hold Instructions: Doctor's Order Rx Instructions: medication on hold as of 12/21/22 per pt atorvastatin 40 mg tablet 40 mg PO DAILY Qty: 90 3RF Rx Instructions: medication on hold as of 12/21/22 per pt lorazepam 0.5 mg tablet 0.5 mg PO BID PRN (Reason: anxiety, muscle spasm) Qty: 30 0RF tramadol 50 mg tablet 50 mg PO TID Qty: 90 3RF potassium chloride 10 mEq capsule, extended release 10 meq PO DAILY Qty: 7 0RF [employer] Drink See Rx Instructions .ROUTE .COMPLEX Rx Instructions: drinks once a day prn sulfasalazine 500 mg tablet See Rx Instructions .ROUTE .COMPLEX Rx Instructions: take 2 tabs in am and 1 pm x 1 week then go to 2 tabs twice daily. give with food (meal/snack) medication on hold as of 12/21/22 per pt levothyroxine 112 mcg tablet 112 mcg PO QAM Referrals: Gil Hatfield CHARRER [Primary Care Provider] - Coding Level of Care Code ED Ice Cream Freezer Helper for Maura Costello
--- NOTE | 2022-12-24 10:35 | ECG_ITS ---
[facility] Test Date: 2022-12-24 Pat Name: Danyell Dailey (Jolean) Department: Room: Gender: Female Compensation Advisor: : 1955 Requested By: Mike Lo Order Number: [id number] Reading MD: Jeremiah Badillo M.D. Measurements Intervals [place] Rate: 79 P: 40 ME: 151 QRS: 28 QRSD: 109 T: 49 QT: 375 QTc: 430 Interpretive Statements SINUS RHYTHM NONSPECIFIC T-WAVE ABNORMALITY Compared to ECG 12/21/2022 22:21:51 T-wave abnormality now present ST (T wave) deviation no longer present Electronically Signed On 12-24-2022 13:00:20 CDT by Jeremiah Badillo M.D. [id number]
[2022-12-24 10:37] LABS: Glucose Point of Care 108 mg/dL (70-110)
[2022-12-24 10:50] LABS: INR 0.95 (0.8-1.2)
[2022-12-24 10:51] LABS: Partial Thromboplastin Time 33.1 SECONDS (23.9-36.7)
[2022-12-24 10:52] LABS: Basophils # 0.1 10^3/uL (0.0-0.1); Basophils % 0.6 %; Hematocrit 36.1 % (37.0-47.0); Hemoglobin 12.2 g/dL (11.5-15.3); Lymphocytes # 4.4 10^3/uL (0.8-4.8); Mean Corpuscular HGB Conc 33.8 g/dL (30.0-36.0); Mean Corpuscular Hemoglobin 31.7 pg (28.0-34.0); Mean Corpuscular Volume 93.8 fl (81-99); Mean Platelet Volume 9.3 fL (7.4-10.4); Monocytes # 1.2 10^3/uL (0.2-0.9); Monocytes % 13.8 %; Neutrophils # 3.19 10^3/uL (1.8-7.7); Neutrophils % 35.7 %; Nucleated Red Blood Cells % 0 %; Platelet Count 389 10^3/cmm (130-400); Red Blood Count 3.85 10^6/uL (4.1-5.3); White Blood Count 8.9 10^3/uL (4.0-10.0)
[2022-12-24 10:55] LABS: Alanine Aminotransferase 37 U/L (0-33); Albumin Level 3.8 g/dL (3.5-5.2); Alkaline Phosphatase 114 U/L (35-105); Anion Gap 14.7 (5-19); Aspartate Amino Transferase 49 U/L (0-32); Blood Urea Nitrogen 9 mg/dL (8-23); Calcium 8.9 mg/dL (8.5-10.5); Carbon Dioxide 26 mmol/L (22-29); Chloride 101 mmol/L (98-107); Glomerular Filtration Rate 99.1 mL/min (90-130); Glucose 99 mg/dL (65-115); Osmolality Calculated 285 mOsm/kg (285-295); Potassium 3.7 mmol/L (3.5-5.1); Sodium 138 mmol/L (136-145); Total Bilirubin 0.3 mg/dL (0.15-1.2); Total Protein 6.8 g/dL (6.6-8.7)
[2022-12-24 11:14] LABS: Slide Review Slide Review Perform
--- NOTE | 2022-12-24 11:19 | USR_ITS ---
PROCEDURE INFORMATION: Exam: US Duplex Bilateral Extracranial Arteries; Complete; Carotid Arteries Exam date and time: 12/24/2022 12:09 PM Age: 67 years old Clinical indication: Other: Head ache; Additional info: Hypertension TECHNIQUE: Imaging protocol: Real-time duplex ultrasound scan of the bilateral extracranial arteries combining perez scale, color Doppler and spectral waveform analysis with image documentation. Complete exam. Exam focused on the carotid arteries. COMPARISON: CT head thrombolytic [id number] 12/24/2022 10:27 AM FINDINGS: Right common carotid artery: Unremarkable. No occlusion or stenosis. Waveforms are normal. Right internal carotid artery: Mild elevated systolic flow velocities consistent with mild stenosis proximal right ICA (less than 50%).. More elevated systolic and diastolic flow velocities more distally that may be due to tortuosity or moderate stenosis (50-69%). There is mild plaque right carotid bifurcation. Mid-distal portion of the right ICA is tortuous. Right ICA/CCA ratio: Mildly elevated. Right external carotid artery: No stenosis in the origin. Right vertebral artery: Unremarkable. Antegrade flow. Left common carotid artery: . No occlusion or stenosis. Waveforms are normal. Mild plaque extending from the distal common carotid artery into the left carotid bifurcation. Left internal carotid artery: Mild elevated systolic flow velocities consistent with mild stenosis (less than 50%). More elevated systolic flow velocities mid-distal left ICA that may be due to tortuosity or moderate stenosis (50-69%). Left ICA/CCA ratio: Mildly elevated Left external carotid artery: Reported is occluded by the technologist however there are arterial waveforms evident indicating patency. Left vertebral artery: Unremarkable. Antegrade flow. US/CV carotid duplex BI* [id number] IMPRESSION: 1. Mild stenosis involving the origin of the right and left ICA (less than 50%). 2. There is evidence of turbulent flow with more elevated systolic flow velocities more distally within the right and left ICA that may be due to tortuosity of the vessels or more significant stenosis (50-69%). Consider CTA of the neck for further evaluation. 3. Findings inconclusive for left external carotid artery stenosis which can also be reassessed on CTA of the neck. REFERENCES: SRU CRITERIA. The degree of internal carotid artery stenosis is based on criteria defined by the Society of Radiologists in Ultrasound (SRU). Normal is no stenosis. Mild is less than 50% stenosis. Moderate is 50-69% stenosis. Severe is greater than 69% stenosis to near occlusion. Near occlusion is a markedly narrowed lumen. Total occlusion is no detectable patent lumen.
--- NOTE | 2022-12-24 11:23 | USCV_ITS ---
Danyell Dailey (Christi) Age: 67 Gender: F : 1955 Exam Date: 12/24/2022 11:45 Ordering Phys: Mike Omalley Technologist: RYANNE Exam Location: [facility] [place] Indication: hypertension BP: / HR: 88 Rhythm: Sinus Technical Quality: Adequate MEASUREMENTS (Male / Female) Normal Values 2D ECHO LV Diastolic Diameter PLAX 4.8 cm 4.2 - 5.9 / 3.9 - 5.3 cm LV Systolic Diameter PLAX 3.0 cm IVS Diastolic Thickness 0.7 cm 0.6 - 1.0 / 0.6 - 0.9 cm IVS Systolic Thickness 1.1 cm LVPW Diastolic Thickness 0.5 cm 0.6 - 1.0 / 0.6 - 0.9 cm LVPW Systolic Thickness 1.0 cm LVOT Diameter 2.2 cm LV Ejection Fraction 2D Teich 65.5 % LV Ejection Fraction MOD 2C 57.1 % LV Ejection Fraction 2C AL 56.5 % LA Diameter 3.2 cm M-MODE Aortic Annulus Diameter 2.7 cm LA Ao Ratio MM 1.3 MV E Point Septal Separation 0.8 cm DOPPLER AV Peak Velocity 154.0 cm/s LVOT Peak Velocity 108.0 cm/s AV Area Cont Eq vti 3.3 cm squared AV Area Cont Eq pk 2.7 cm squared MV Area PHT 3.1 cm squared Mitral E to A Ratio 0.7 MV E' Velocity 49.5 cm/s Mitral E to MV E' Ratio 14.5 Mitral E to LV E' Lateral Ratio 16.6 Mitral E to LV E' Septal Ratio 12.9 TR Peak Velocity 274.3 cm/s TR Peak Gradient 30.1 mmHg TV Peak E Velocity 44.0 cm/s Right Atrial Pressure 3.0 mmHg Pulmonary Artery Systolic Pressu 33.1 mmHg PV Peak Velocity 98.0 cm/s FINDINGS Left Ventricle Left ventricle is normal in size. LV systolic function is normal with EF of 55 to 60%. No regional wall motion abnormalities are seen. Grade 1 diastolic dysfunction. Right Ventricle Normal in size and function Right Atrium Normal in size Left Atrium Normal in size Mitral Valve Structurally normal mitral valve. Mild mitral regurgitation. Aortic Valve Structurally normal aortic valve. No significant stenosis or regurgitation. Tricuspid Valve Mild tricuspid regurgitation. Insufficient TR jet to calculate RVSP Pulmonic Valve Not well visualized Pericardium Normal Aorta Normal in size IVC Appears to be normal CONCLUSIONS LV systolic function is normal with EF 55 to 60%. Grade 1 diastolic dysfunction. Mild mitral regurgitation. Mild tricuspid regurgitation No comparison studies are available Jeremiah Badillo MD (Electronically Signed) Final Date: 25 December 2022 11:19 S
--- NOTE | 2022-12-24 11:23 | PC.PHAR ---
pt states her dr put atorvastatin 40mg daily,clonidine 0.1mg bid prn, hctz 25mg daily,hydroxychloroquine 200mg bid,lisinopril 40mg daily,prednisone 5mg daily,sulfasalazine 500mg titrating dose all on hold-notes are made in the pharmacy comments
--- NOTE | 2022-12-24 11:23 | PM.CONSULT ---
Providers/Reason For Consult Consulting Physician/Specialty*: Federico Nicole MD neurology and epilepsy Reason for Consult*: Code stroke at 10:23 AM on 12/24/2022 emergency room bed #14 Neurology physician arrival time 10:40 AM on 12/24/2022 Primary Care Provider: Gil Hatfield History of Present Illness History of Present Illness Danyell Dailey (Jolean) is a 67 year old right-handed female with a history of rheumatoid arthritis. The patient also has a history of chronic pain and chronic headaches. According to the patient, approximately 1 week prior to presenting to the [facility] emergency room she was feeling ill for 1 week and was not eating or drinking secondary to decreased appetite. According to the patient's who was present in the emergency room bed #14 the patient contacted one of her physicians and the patient was instructed to hold prednisone, clonidine, Lipitor, lisinopril, Plaquenil, hydrochlorothiazide, and sulfasalazine. On 12/22/2022 the patient presented to [facility] emergency room secondary to not feeling well. The patient reports that her potassium was low and she was given IV potassium and was later released. This morning the patient stated that she woke up and was in her usual state of health. The patient stated that she made breakfast and had finished eating breakfast and was writing in her blood pressure and making a note on how she was feeling in her log book. The patient reported that her blood pressure was elevated 152/81. She also stated that she noticed she was having some blurred vision and trouble writing using her right hand at 8:30 AM. The patient denied any speech difficulty or loss of vision or dizziness but stated that she began experiencing her usual hip pain in the top of her head. Therefore the patient was brought to the [facility] emergency room. In the emergency room code stroke was initiated at 10:23 AM today. I arrived at the [facility] emergency room at 10:40 AM to evaluate the patient. Blood pressure in the emergency room 153/93 with a heart rate of 78 O2 saturation 97%. NIH score = 0. Noncontrast head CT was obtained and reported to be negative. Metabolic lab was obtained serum potassium was reported to be within normal limits. Since the patient's NIH score = 0, the patient was not a candidate for tPA and no tPA was administered. I spoke with the attending ER physician this morning and recommended that the patient undergo carotid duplex study and 2D echocardiogram to evaluate for carotid stenosis and embolic source for TIA respectively. On further questioning the patient is not clear why she was taken off of the medications on 12/21/2022 listed above. stated that he thinks the patient's medications were discontinued because of low blood pressure but he is not for sure. Past medical history: Rheumatoid arthritis Hypothyroid Hypokalemia Dehydration Vomiting Abdominal pain Hypertension Osteoarthritis involving her knees and hands bilateral Drug allergies: Z-Tristan (azithromycin) type of reaction unknown Codeine which resulted in GI upset Gabapentin type reaction unknown Current medications: Tramadol (Ultram ) 50 mg p.o. 3 times daily for pain Ativan 0.5 mg p.o. twice daily Potassium chloride 10 mEq p.o. daily Omeprazole (Prilosec) 20 mg p.o. daily Synthroid 112 mcg p.o. daily Doxycycline 100 mg p.o. twice daily Deena natural injury drink occasionally NOTE: Medications that are were placed on hold on 12/21/2022: Prednisone 5 mg p.o. daily Clonidine 0.5 mg p.o. twice daily as needed elevated blood pressure (patient stated that she has not taken this medication for 2 weeks) Lisinopril 40 mg p.o. daily Lipitor 40 mg p.o. daily Plaquenil 200 mg p.o. twice daily for rheumatoid arthritis Hydrochlorothiazide 25 mg p.o. daily Sulfasalazine 500 mg tablets 2 p.o. twice a day Habits: None Family history: Negative for strokes Review of Systems General: Reports: 10 or more systems reviewed and unremarkable except in HPI and below Const: Reports: body aches Eyes: Reports: blurry vision GI: Reports: abdominal pain and nausea Musc: Reports: neck pain, back pain, extremity pain, joint pain and joint stiffness Neuro: Reports: weakness in extremities Medications/Allergies Home Medications Medication Instructions Recorded Confirmed Last Taken Type atorvastatin 40 mg tablet 40 mg PO DAILY #90 tabs 06/26/22 12/24/22 Unknown Rx lorazepam 0.5 mg tablet 0.5 mg PO BID PRN anxiety, muscle 08/14/22 12/24/22 Unknown Rx spasm #30 tabs clonidine HCl 0.1 mg tablet 0.1 mg PO BID PRN hypertensive 10/02/22 12/24/22 Unknown Rx emergency #60 tabs lisinopril 40 mg tablet 40 mg PO DAILY #30 tabs 10/02/22 12/24/22 Unknown Rx tramadol 50 mg tablet 50 mg PO TID pain #90 tabs 10/16/22 12/24/22 Unknown Rx hydrochlorothiazide 25 mg tablet 25 mg PO DAILY #90 tabs 11/16/22 12/24/22 Unknown Rx hydroxychloroquine 200 mg tablet 200 mg PO BID #60 tabs 12/06/22 12/24/22 Unknown Rx omeprazole 20 mg capsule,delayed 20 mg PO DAILY #30 caps 12/06/22 12/24/22 12/24/22 08:30 Rx release prednisone 5 mg tablet 5 mg PO DAILY #90 tabs 12/06/22 12/24/22 Unknown Rx doxycycline monohydrate 100 mg 100 mg PO BID #14 caps 12/20/22 12/24/22 12/24/22 08:30 Rx capsule potassium chloride 10 mEq 10 meq PO DAILY #7 caps 12/21/22 12/24/22 12/24/22 08:30 Rx capsule,extended release [employer] See Rx Instructions .Route .COMPLEX 12/24/22 12/24/22 12/22/22 History levothyroxine 112 mcg tablet 112 mcg PO QAM 12/24/22 12/24/22 12/24/22 08:30 History sulfasalazine 500 mg tablet See Rx Instructions .Route .COMPLEX 12/24/22 12/24/22 Unknown History Allergies Allergy/AdvReac Type Severity Reaction Status Date / Time azithromycin Allergy Intermediate Unknown Verified 12/24/22 11:23 codeine Allergy ADR-Gastrointestinal Verified 12/24/22 11:23 Upset gabapentin [From Neurontin] Allergy unknown Verified 12/24/22 11:23 PFSH Acute PFSH: Medical History Erosive osteoarthritis of both hands High risk medication use Hypertension Immunization counseling Inflammatory arthritis Joint pain Osteoarthritis of carpometacarpal (CMC) joint of both thumbs Osteoarthritis of hands, bilateral Osteoarthritis of knees, bilateral Seronegative rheumatoid arthritis of both hands Surgical History History of shoulder surgery left Family History Other Bleeding disorder Cancer Diabetes Family history of premature coronary artery disease Hyperlipidemia Stroke Denies family history of Rheumatoid arthritis Lupus CAD (coronary artery disease) Anesthesia complication Social History Smoking and tobacco status: never smoked Alcohol intake: never Substance/Drug Use: never Vitals/I&O/Wt Last Vital Signs Temp 98.3 F 12/24/22 10:03 Pulse 76 12/24/22 11:00 Resp 17 12/24/22 11:00 BP 145/73 12/24/22 11:00 Pulse Ox 98 12/24/22 11:00 O2 Del Method Room Air 12/24/22 10:55 Weight last 48 hrs Weight 159 lb Physical Exam Narrative: Blood pressure 153/93 heart rate 78 O2 saturations 97% on room air NIH score =0 The patient is currently alert and oriented x3. Speech fluent. Head normocephalic. Neck supple. Head nontender. Cranial nerves II through XII intact. Pupils 4 mm. Pupils round reactive to light and accommodation. Extraocular movements intact. There were no nystagmus. Visual nair full via confrontation. Patient wears glasses. Motor examination 5/5 bilaterally. There was no drift. Qhmngf-[id number]-lygslx and plxp-mmga-slnj maneuvers were within normal limits without signs of ataxia. Deep tendon reflexes 2+ bilaterally. Plantar responses flexor bilaterally. There was no clonus. Sensory examination was intact to touch and pinprick. There was no extinction on double sensory stimulation. Throat clear. Lungs clear. Heart regular rhythm and rate. Abdomen soft & bowel sounds positive. extremities were negative for clubbing cyanosis or edema. Data 12/24/22 10:13 12/24/22 10:13 A&P Assessment and plan (1) TIA (transient ischemic attack): Plan 65-year-old female with history of rheumatoid arthritis. This morning on 12/24/2022 at approximately 8:30 AM the patient experienced reports of elevated blood pressure with blurred vision and difficulty writing using her right hand for a few moments which resolved. Code stroke was initiated at 10:23 AM NIH score = 0 on neurological assessment at 10:40 AM. Clinical history suggestive of: 1. Left subcortical versus cortical TIA, resolved (noncontrast head CT scan performed on 12/24/2022 was negative). 2. History of rheumatoid arthritis 3. History of hypokalemia (patient's potassium within normal limits on 12/24/2022) 4. History of hypothyroid 5. History of chronic pain addressed by another physician Plan: 1. Recommend carotid duplex study to assess for carotid or vertebral artery stenosis 2. Recommend 2D echocardiogram to assess for embolic source for TIA 3. Recommend resuming Lipitor or using an alternative medication for hyperlipidemia/stroke prevention if no contraindications 4. Recommend aspirin 325 mg p.o. every morning with food for stroke prophylaxis if no contraindications 5. Please have patient follow-up with her physicians and contact her physicians to inform them that the patient was evaluated in the emergency room on 12/24/2022 6. Please schedule patient for follow-up in the [facility] neurology clinic in 2 weeks 7. Note: The treatment plan was also discussed with the patient and her who was present with the patient in ER bed 14 Consult Attestations Medical Necessity Statement: The patient was evaluated by neurology secondary to code stroke initiated at 10:23 AM on 12/24/2022 ER bed 14 Coding Level of Care Code 62309 Diagnoses TIA (transient ischemic attack) G45.9 Time Spent (min) 30 Comment Note: I spent 30 minutes [id number] with the patient evaluating her for left
[2022-12-24] MEDS: sodium chloride 0.9% 500 ML 999 ML IV (11:32)
[2022-12-24] MEDS: aspirin 325 mg Tablet PO (11:32)
[2022-12-24 11:33] LABS: Add Urine Microscopic? NO; Charge for UA Resulting for Rev
[2022-12-24 11:41] LABS: Urine Appearance Clear (CLEAR)
[2022-12-24 11:42] LABS: Bilirubin Urine Neg (Negative); Blood Urine Neg (Negative); Glucose Urine UA Norm (Normal); Ketones Urine Negative (Negative); Leukocyte Esterase Urine Negative (Negative); Nitrate Urine Negative (Negative); Protein Urine Neg (Negative); Sulfosalicylic Acid Urine Negative (Negative); Urine Color Light yellow (Yellow); Urobilinogen Urine Norm (Negative); pH Urine 8 (5-7)
[2022-12-24 11:50] LABS: Amphetamines Screen Urine Negative (Negative); Barbiturates Screen Urine Negative (Negative); Benzodiazepines Screen Urine Negative (Negative); Cocaine Screen Urine Negative (Negative); Opiate Screen Urine Negative (Negative); PCP Screen Urine Negative (Negative); THC Screen Urine Negative (Negative)
--- NOTE | 2022-12-24 13:48 | CTR_ITS ---
PROCEDURE INFORMATION: Exam: CTA Head With Contrast, Arteriography Exam date and time: 12/24/2022 2:06 PM Age: 67 years old Clinical indication: Cognitive deficit; Altered mental status; Additional info: Stenosis TECHNIQUE: Imaging protocol: Computed tomographic angiography of the head with contrast. Exam focused on the arteries. 3D rendering (Not supervised by radiologist): MIP and/or 3D reconstructed images were created by the technologist. Radiation optimization: All CT scans at this facility use at least one of these dose optimization techniques: automated exposure control; mA and/or kV adjustment per patient size (includes targeted exams where dose is matched to clinical indication); or iterative reconstruction. Contrast material: OMNI 350; Contrast volume: 100 ml; Contrast route: INTRAVENOUS (IV); REPORTING DATA: Count of CT and Cardiac NM exams in prior 12 months: This patient has received 0 known CTs and 0 known cardiac nuclear medicine studies in the 12 months prior to the current study. COMPARISON: CT head thrombolytic [id number] 12/24/2022 10:27 AM RADIATION DOSE METRICS: Total DLP (mGy-cm): 493.81 FINDINGS: ANTERIOR CIRCULATION: Right internal carotid artery: Intracranial segment is patent with no significant stenosis. No aneurysm. Right middle cerebral artery: No occlusion or significant stenosis. No aneurysm. Right anterior cerebral artery: No occlusion or significant stenosis. No aneurysm. Left internal carotid artery: Intracranial segment is occluded. Left middle cerebral artery: No occlusion or significant stenosis. No aneurysm. Left anterior cerebral artery: No occlusion or significant stenosis. No aneurysm. POSTERIOR CIRCULATION: Right vertebral artery: No occlusion or significant stenosis. No aneurysm. Left vertebral artery: No occlusion or significant stenosis. No aneurysm. Basilar artery: No occlusion or significant stenosis. No aneurysm. Right posterior cerebral artery: No occlusion or significant stenosis. No aneurysm. Left posterior cerebral artery: No occlusion or significant stenosis. No aneurysm. Brain: No definite mass, mass effect, or midline shift. Cerebral ventricles: No ventriculomegaly. Bones/joints: Unremarkable. No acute fracture. Soft tissues: Unremarkable. PROCEDURE INFORMATION: Exam: CTA Neck With Contrast Exam date and time: 12/24/2022 2:06 PM Age: 67 years old Clinical indication: Cognitive deficit; Altered mental status; Additional info: Stenosis TECHNIQUE: Imaging protocol: Computed tomographic angiography of the neck with contrast. 3D rendering (Not supervised by radiologist): MIP and/or 3D reconstructed images were created by the technologist. Radiation optimization: All CT scans at this facility use at least one of these dose optimization techniques: automated exposure control; mA and/or kV adjustment per patient size (includes targeted exams where dose is matched to clinical indication); or iterative reconstruction. Contrast material: OMNI 350; Contrast volume: 100 ml; Contrast route: INTRAVENOUS (IV); REPORTING DATA: Count of CT and Cardiac NM exams in prior 12 months: This patient has received 0 known CTs and 0 known cardiac nuclear medicine studies in the 12 months prior to the current study. COMPARISON: US CV carotid duplex * [id number] 12/24/2022 12:09 PM RADIATION DOSE METRICS: Total DLP (mGy-cm): 493.81 FINDINGS: Right common carotid artery: No stenosis. No dissection or occlusion. Right internal carotid artery: No stenosis of the extracranial segment. No dissection or occlusion. Right external carotid artery: No occlusion or stenosis of the origin. Left common carotid artery: No stenosis. No dissection or occlusion. Left internal carotid artery: Left ICA is occluded 1 cm distal to its origin. Left external carotid artery: No occlusion or stenosis of the origin. Right vertebral artery: No stenosis. No dissection or occlusion. Left vertebral artery: No stenosis. No dissection or occlusion. Soft tissues: Normal. No significant soft tissue swelling. Bones/joints: There are advanced degenerative changes lower cervical spine with retrolisthesis of C5. No acute bony abnormalities. CT/CT angio headneck* [id number] IMPRESSION: 1. Occluded intracranial segment left ICA. 2. Remainder of the CT of the brain is unremarkable. IMPRESSION: Occluded left ICA just distal to its origin. REFERENCES: NASCET CRITERIA. The degree of stenosis in the cervical segment of the internal carotid artery is based on NASCET criteria. Normal is no stenosis. Mild is less than 50% stenosis. Moderate is 50-69% stenosis. Severe is 70% to 99% stenosis. Total occlusion is no detectable patent lumen.
[2022-12-24] MEDS: iohexol 350 mg/mL 500 mL Btl (per mL) IV (14:20)
--- NOTE | 2022-12-24 15:28 | P.HP_ITS ---
Providers/Chief Complaint Admitting Physician: Alexis Shrestha MD Primary Care Provider: Gil Hatfield Chief Complaint: abn labs History of Present Illness Danyell Dailey (Jolean) is a 67 year old female with a past medical history significant for rheumatoid arthritis, chronic pain, hypertension, and hyperlipidemia who presents with blurred vision, right hand ataxia, and elevated blood pressure with onset around 0830 this morning. She denies prior similiar episodes. Denies alleviating or aggravating factors. She was brought the emergency room as a code stroke and evaluated by neurology. Initial head imaging showed occluded intracranial segment left ICA. Neurology recommended admission for further work up including carotid duplex and TTE with high probably of needing KYREE. Of note, patient was recently treated for hypokalemia after patient was ev aluated in the emergency department after feeling ill for the week prior with decreased appetite. They report they were instructed to hold prednisone, clonidine, Lipitor, lisinopril, Plaquenil, hydrochlorothiazide, and sulfasalazine.? Patient denies slurred speech, chest pain, fevers or chills. Review of Systems Narrative: A complete review of systems was completed and found to be negative except where noted in HPI. Medications/Allergies Home Medications Medication Instructions Recorded Confirmed Last Taken Type atorvastatin 40 mg tablet 40 mg PO DAILY #90 tabs 06/26/22 12/24/22 Unknown Rx lorazepam 0.5 mg tablet 0.5 mg PO BID PRN anxiety, muscle 08/14/22 12/24/22 Unknown Rx spasm #30 tabs clonidine HCl 0.1 mg tablet 0.1 mg PO BID PRN hypertensive 10/02/22 12/24/22 Unknown Rx emergency #60 tabs lisinopril 40 mg tablet 40 mg PO DAILY #30 tabs 10/02/22 12/24/22 Unknown Rx tramadol 50 mg tablet 50 mg PO TID pain #90 tabs 10/16/22 12/24/22 Unknown Rx hydrochlorothiazide 25 mg tablet 25 mg PO DAILY #90 tabs 11/16/22 12/24/22 Unknown Rx hydroxychloroquine 200 mg tablet 200 mg PO BID #60 tabs 12/06/22 12/24/22 Unknown Rx omeprazole 20 mg capsule,delayed 20 mg PO DAILY #30 caps 12/06/22 12/24/22 12/24/22 08:30 Rx release prednisone 5 mg tablet 5 mg PO DAILY #90 tabs 12/06/22 12/24/22 Unknown Rx doxycycline monohydrate 100 mg 100 mg PO BID #14 caps 12/20/22 12/24/22 12/24/22 08:30 Rx capsule potassium chloride 10 mEq 10 meq PO DAILY #7 caps 12/21/22 12/24/22 12/24/22 08:30 Rx capsule,extended release [employer] See Rx Instructions .Route .COMPLEX 12/24/22 12/24/22 12/22/22 History levothyroxine 112 mcg tablet 112 mcg PO QAM 12/24/22 12/24/22 12/24/22 08:30 History sulfasalazine 500 mg tablet See Rx Instructions .Route .COMPLEX 12/24/22 12/24/22 Unknown History Allergies Allergy/AdvReac Type Severity Reaction Status Date / Time azithromycin Allergy Intermediate Unknown Verified 12/24/22 11:23 codeine Allergy ADR-Gastrointestinal Verified 12/24/22 11:23 Upset gabapentin [From Neurontin] Allergy unknown Verified 12/24/22 11:23 PFSH Acute PFSH: Medical History Erosive osteoarthritis of both hands High risk medication use Hypertension Immunization counseling Inflammatory arthritis Joint pain Osteoarthritis of carpometacarpal (CMC) joint of both thumbs Osteoarthritis of hands, bilateral Osteoarthritis of knees, bilateral Seronegative rheumatoid arthritis of both hands Surgical History History of shoulder surgery left Family History Other Bleeding disorder Cancer Diabetes Family history of premature coronary artery disease Hyperlipidemia Stroke Denies family history of Rheumatoid arthritis Lupus CAD (coronary artery disease) Anesthesia complication Social History Smoking and tobacco status: never smoked Alcohol intake: never Substance/Drug Use: never Vitals/I&O/Wt Last Vital Signs Temp 98.3 F 12/24/22 10:03 Pulse 82 12/24/22 15:11 Resp 14 12/24/22 15:11 BP 173/85 12/24/22 15:11 Pulse Ox 98 12/24/22 15:11 O2 Del Method Room Air 12/24/22 15:11 Weight last 48 hrs Weight 72.121 kg Physical Exam Narrative: General: Patient is awake and alert. Lying in bed. Head:? Normocephalic. Atraumatic. EOM intact. Neck: No JVD. Cardiovascular: RRR. No gallops. No murmurs. Lungs: CTAB. No wheezing. No crackles. No room air. Skin: No jaundice. No rashes. Abdomen: Normal bowel sounds, abdomen soft and nontender. Genito Urinary: Genital exam not performed since complaints not related. Rectal: Rectal exam not performed since no symptoms indicated blood loss. Extremities: No cyanosis or clubbing. Musculoskeletal: Normal muscle mass. Neurological:? No myoclonus.? Moves all 4 extremities. Data 12/24/22 10:13 12/24/22 10:13 A&P Assessment and plan (1) TIA (transient ischemic attack): NIH 0 on my exam Neurochecks Head imaging reviewed, notable for occluded intracranial segment left ICA on CTA Neurology consulted Carotid doppler US Head MRI TTE, possibly KYREE pending results Telemetry Start aspirin therapy Statin LIpids and A1c (2) Seronegative rheumatoid arthritis of both hands: Immunosuppressed due to medications Continue home medications Continue tramadol as needed (3) Hypertension: Continue lisinopril Hold clonidine Hold HCTZ Qualifiers: Hypertension type: primary hypertension Qualified Code(s): I10 - Essential (primary) hypertension Plan DVT ppx: Lovenox Code: Full Attestations Medical Necessity Statement*: Patient presents with stroke like symptoms with expected work up and treatment not to cross two midnights. Coding Level of Care Code Acute Code for [facility] Fwd Diagnoses TIA (transient ischemic attack) G45.9 Seronegative rheumatoid arthritis of both hands M06.041; M06.042 Hypertension I10 Hypertension type: primary hypertension
[2022-12-24 19:43] LABS: Chol HDL Ratio 4.33 mg/dL (0.0-4.40); Cholesterol 143 mg/dL (0-200); HDL Cholesterol 33 mg/dL (60-100); LDL Cholesterol Calculated 75 mg/dL (50-129); LDL HDL Ratio 2.27 RATIO (0.00-3.22); Triglycerides 177 mg/dL (0-150)
[2022-12-24 21:38] LABS: Estmated Average Glucose 103; Hemoglobin A1C 5.2 % (4.0-6.0)
[2022-12-24] MEDS: enoxaparin 40 mg/0.4 mL Syringe SUBCUT (22:01)
[2022-12-24] MEDS: clopidogrel 75 mg Tablet PO (22:02)
[2022-12-24] MEDS: TRAMadol 50 mg Tablet PO (22:02)
[2022-12-25] VITALS (7 sets, daily range): BP systolic 132–152; BP diastolic 67–81; PULSE 71–77; RESP 14–22; TEMP 36.6–36.7; O2SAT 95–98
--- NOTE | 2022-12-25 05:02 | PC.NURSE ---
Medication Patient stated that home medication sulfasalazine is on hold per her PCP. Patient states she does not want to receive this medication while hospitalized. Nurse report to pharmacy, pharmacy D/C order.
[2022-12-25] MEDS: levothyroxine 112 mcg Tablet PO (06:18)
--- NOTE | 2022-12-25 07:46 | MR_ITS ---
WS: [id number] MRI BRAIN WITHOUT CONTRAST HISTORY: TIA COMPARISON: 12/24/2022 TECHNIQUE: Diffusion imaging, multiplanar T1, T2 and FLAIR imaging obtained. No evidence for acute infarct or hemorrhage. Callahan-white matter differentiation is normal. Very mild atrophy. Moderate small vessel ischemic type changes within the white matter. Periventricul ar and subcortical distribution. Slightly more than expected for a patient of this age. Ventricles and extra-axial spaces are normal. No inferior displacement of cerebellar tonsils. The sella turcica and pituitary gland are unremarkabl e. No flow void present within the LEFT intracranial ICA. This was also described on the recent CT angio gram. Dominant RIGHT intracranial carotid artery. There is mild increased signal within the intracran ial LEFT carotid artery to the cavernous sinus and skull base. Paranasal sinuses: Clear. Mastoid air cells: Normal. Calvarium and scalp: Intact. MR/MR head wo con* [id number] IMPRESSION: 1. Diffusion-weighted imaging is normal. No evidence for an acute infarct. 2. Abnormal signal and lack of flow void in the LEFT intracranial carotid quincy ry corresponds to the findings on the recent CTA from 12/24/2022. Consistent with an occluded LEFT ICA. Lack of diffusion abnormality may be related to an intac t [place] and a small persistent lumen of the ICA. This was better see n on the CTA [place] performed on 12/24/2022. 3. Moderate small vessel ischemic type changes noted bilaterally. Slightly mor e than expected for patient's age.
[2022-12-25] MEDS: lisinopril 20 mg Tablet 40 MG PO (09:43)
--- NOTE | 2022-12-25 11:20 | P.CONIM_ITS ---
Providers/Reason For Consult Consulting Physician/Specialty*: Jeremiah Badillo MD Reason for Consult*: Transesophageal echocardiogram Requesting Physician: Dr Shrestha Attending Physician: Carlos Santana MD Primary Care Provider: Gil Hatfield History of Present Illness History of Present Illness Danyell Dailey (Jolean) is a 67 year old female with past medical history of hypertension who presented to hospital with difficulty writing and blurred vision. Currently worked up for TIA/stroke. Transthoracic echocardiogram was performed that showed normal LV systolic function. However bubble study was not done. Cardiology consulted for possible transesophageal echocardiogram. Review of Systems General: Reports: 10 or more systems reviewed and unremarkable except in HPI and below Const: Reports: fatigue and malaise; Denies: fever(s), chills, change in appetite or change in weight Eyes: Denies: change in vision, eye discomfort, eye discharge or eye redness ENMT: Denies: throat pain, enlarged tonsils, odynophagia, hoarseness, ear or mastoid pain, ear discharge, change in hearing, tinnitus, nasal discharge, nasal congestion, post nasal drip or sinus pain Card: Denies: chest pain, palpitations, irregular heart rhythm, edema, dyspnea on exertion, orthopnea or leg pain with exertion Resp: Denies: dyspnea, productive cough, non-productive cough, wheezing, stridor or chest congestion GI: Denies: abdominal pain, nausea, vomiting, dysphagia, diarrhea, con stipation, bloating, GI cramping or hematochezia : Denies: flank pain, difficulty voiding, dysuria, urinary frequency, urinary urgency, urinary hesitancy, oliguria or hematuria Musc: Denies: neck pain, back pain, extremity pain, joint pain, joint swelling, joint redness, joint warmth or muscle weakness Skin/Breast: Denies: rash, pruritus, erythema, photosensitivity or new lesions Neuro: Reports: weakness in extremities, lack of coordination and difficulty walking; Denies: sensory changes, frequent falls, dizziness, confusion, Slurred speech present, difficulty communicating thoughts, seizure-like activity or involuntary movements Endo: Denies: polyuria, polydipsia or tired all the time Wilmar/Lymph: Denies: easy bruising or easy bleeding Medications/Allergies Home Medications Medication Instructions Recorded Confirmed Last Taken Type tramadol 50 mg tablet 50 mg PO TID pain #90 tabs 10/16/22 01/08/23 Unknown Rx omeprazole 20 mg capsule,delayed 20 mg PO DAILY #30 caps 12/06/22 01/08/23 12/24/22 08:30 Rx release clopidogrel 75 mg tablet (Plavix) 75 mg PO DAILY #30 tabs 12/25/22 01/08/23 Unknown Rx tizanidine 4 mg capsule 4 mg PO BID PRN muscle spasticity 12/27/22 01/08/23 Unknown Rx #120 caps lisinopril 40 mg tablet 40 mg PO DAILY #30 tabs 12/28/22 01/08/23 Unknown Rx lorazepam 0.5 mg tablet 0.5 mg PO DAILY PRN anxiety, 12/28/22 01/08/23 Unknown Rx muscle spasm #30 tabs levothyroxine 112 mcg tablet See Rx Instructions .Route 01/03/23 01/08/23 Unknown Rx .COMPLEX #90 tabs Allergies Allergy/AdvReac Type Severity Reaction Status Date / Time azithromycin Allergy Intermediate Unknown Verified 01/08/23 09:07 codeine Allergy ADR-Gastrointestinal Verified 01/08/23 09:07 Upset gabapentin [From Neurontin] Allergy unknown Verified 01/08/23 09:07 Current Medications Generic Name Dose Route Start Last Admin Trade Name Freq PRN Reason Stop Dose Admin Enoxaparin Sodium 40 mg 12/24/22 21:00 12/24/22 22:01 Enoxaparin 40 Mg/0.4 Ml Syringe SUBCUT 40 mg Q24H BRIAN Administration Levothyroxine Sodium 112 mcg 12/25/22 06:00 12/25/22 06:18 Levothyroxine 112 Mcg Tablet PO 112 mcg QAM BRIAN Administration Lisinopril 40 mg 12/25/22 09:00 12/25/22 09:43 Lisinopril 20 Mg Tablet PO 40 mg DAILY BRIAN Administration Tramadol HCl 50 mg 12/24/22 21:00 12/24/22 22:02 Tramadol 50 Mg Tablet PO 50 mg TID BRIAN Administration PFSH Acute PFSH: Medical History Erosive osteoarthritis of both hands High risk medication use Hypertension Immunization counseling Inflammatory arthritis Joint pain Occlusion of left internal carotid artery Osteoarthritis of carpometacarpal (CMC) joint of both thumbs Osteoarthritis of hands, bilateral Osteoarthritis of knees, bilateral Seronegative rheumatoid arthritis of both hands TIA (transient ischemic attack) Surgical History History of shoulder surgery left Family History Other Bleeding disorder Cancer Diabetes Family history of premature coronary artery disease Hyperlipidemia Stroke Denies family history of Rheumatoid arthritis Lupus CAD (coronary artery disease) Anesthesia complication Social History Smoking and tobacco status: never smoked Alcohol intake: never Substance/Drug Use: never Vitals/I&O/Wt Last Vital Signs Temp 98.1 F 12/25/22 08:00 Pulse 73 12/25/22 08:00 Resp 14 12/25/22 08:00 BP 149/81 12/25/22 08:00 Pulse Ox 98 12/25/22 08:00 O2 Del Method Room Air 12/25/22 08:00 12/24/22 12/25/22 12/25/22 22:59 06:59 14:59 Intake Total 740 / 740 0 / 740 Output Total 400 / 400 200 / 200 Balance 740 / 740 -400 / 340 -200 / -200 Weight last 48 hrs Weight 159 lb Weight 159 lb Physical Exam Narrative: GENERAL: Patient is alert, awake and oriented x3. [] NECK: No jugular vein distension. [] HEENT: No cyanosis. No icterus. No pallor. [] HEART: Regular S1 and S2. No murmur, rub or gallop. [] LUNGS: Clear to auscultate bilaterally. [] CENTRAL NERVOUS SYSTEM: Grossly nonfocal. [] EXTREMITIES: Lower extremities with no edema Data 12/24/22 10:13 12/24/22 10:13 A&P Assessment and plan (1) Transient ischemic attack involving left internal carotid artery: (2) Hypertension: Qualifiers: Hypertension type: primary hypertension Qualified Code(s): I10 - Essential (primary) hypertension Plan Patient has presented with TIA. Left internal carotid artery is occluded on imaging. Cardiology was consulted for possible transesophageal echocardiogram. I discussed with neurology and we decided to proceed with transthoracic echocardiogram with bubble study. If bubble study is negative, we will not perform transesophageal echocardiogram. Thank you for involving us with care of this patient. Please call with questions. Consult Attestations Medical Necessity Statement: Care expected to cross 2 midnights. Coding Level of Care Code Acute Code for Chg Fwd Diagnoses Transient ischemic attack involving left internal carotid artery G45.1 Hypertension I10 Hypertension type: primary hypertension
--- NOTE | 2022-12-25 12:09 | USCV_ITS ---
Asim Danyell ([facility]) Age: 67 Gender: F : 1955 Exam Date: 12/25/2022 13:55 Ordering Phys: Jeremiah Badillo M.D ([email or web address]) Technologist: Jose Alejandro Dugan [place] [facility] [place]: [place] BP: / HR: Rhythm: Sinus Technical Quality: Adequate MEASUREMENTS (Male / Female) Normal Values FINDINGS Left Ventricle Right Ventricle Right Atrium Left Atrium Mitral Valve Aortic Valve Tricuspid Valve Pulmonic Valve Pericardium Aorta IVC CONCLUSIONS Limited echocardiogram performed to assess intracardiac shunting. Limited loops captured. No evidence of intracardiac shunting seen on bubble study. Jeremiah Badillo MD (Electronically Signed) Final Date: 25 December 2022 15:01 S
--- NOTE | 2022-12-25 12:48 | P.PN_ITS ---
Subjective Subjective: Danyell Dailey (Jolean) is a 67 year old right-handed female with a history of rheumatoid arthritis.? The patient also has a history of chronic pain and chronic headaches.? According to the patient, approximately 1 week prior to presenting to the [facility] emergency room she was feeling ill for 1 week and was not eating or drinking secondary to decreased appetite.? According to the patient's , the patient contacted one of her physicians and the patient was instructed to hold prednisone, clonidine, Lipitor, lisinopril, Plaquenil, hydrochlorothiazide, and sulfasalazine.? On 12/22/2022 the patient presented to [facility] emergency room secondary to not feeling well.? The patient reports that her potassium was low and she was given IV potassium and was later released.? This morning the patient stated that she woke up and was in her usual state of health.? The patient stated that she made breakfast and had finished eating breakfast and was writing in her blood pressure and making a note on how she was feeling in her log book.? The patient reported that her blood pressure was elevated 152/81.? She also stated that she noticed she was having some blurred vision and trouble writing using her right hand at 8:30 AM.? The patient denied any speech difficulty or loss of vision or dizziness but stated that she began experiencing her usual hip pain in the top of her head.? Therefore the patient was brought to the [facility] emergency room.? In the emergency room code stroke was initiated at 10:23 AM.? I arrived at the [facility] emergency room at 10:40 AM to evaluate the patient.? Blood pressure in the emergency room 153/93 with a heart rate of 78 O2 saturation 97%.? NIH score = 0.? Noncontrast head CT was obtained and reported to be negative.? Metabolic lab was obtained serum potassium was reported to be within normal limits.? Since the patient's NIH score = 0, the patient was not a candidate for tPA and no tPA was administered. I spoke with the attending ER physician and recommended that the patient undergo carotid duplex study and 2D echocardiogram to evaluate for carotid stenosis and embolic source for TIA respectively.? On further questioning the patient is not clear why she was taken off of the medications on 12/21/2022 listed above.? stated that he thinks the patient's medications were discontinued because of low blood pressure but he is not for sure. Carotid duplex study revealed turbulent velocities in the internal carotid arteries bilaterally and therefore CT angiogram of the head and neck was obtained and revealed occlusion of the left internal carotid artery distal to its origin. The patient was admitted. She was started on a cholesterol-lowering agent, Plavix and aspirin. Transthoracic echocardiogram was ordered with plans for the patient to possibly undergo transesophageal echo if warranted. This morning the patient remained stable but reported acid reflux with aspirin. Therefore I instructed the nurse to discontinue the aspirin and use Plavix 75 mg p.o. every morning with food and continue a lipid-lowering agent. Also recommended hypercoagulable lab. I spoke with the manager spa today and the transesophageal echo was not done with bubble study. The study would be repeated with bubble study and if negative, no transesophageal echo will be performed. Head MRI was obtained and revealed no acute findings there was report of the occluded left ICA. Past medical history: Rheumatoid arthritis Hypothyroid Hypokalemia Dehydration Vomiting Abdominal pain Hypertension Osteoarthritis involving her knees and hands bilateral Drug allergies: Z-Tristan (azithromycin) type of reaction unknown Codeine which resulted in GI upset Gabapentin type reaction unknown Current medications: Plavix 75 mg p.o. every morning with food Tramadol (Ultram ) 50 mg p.o. 3 times daily for pain Ativan 0.5 mg p.o. twice daily Potassium chloride 10 mEq p.o. daily Omeprazole (Prilosec) 20 mg p.o. daily Synthroid 112 mcg p.o. daily Doxycycline 100 mg p.o. twice daily Deena natural injury drink occasionally Lipitor 40 mg p.o. daily NOTE: Medications that are were placed on hold on 12/21/2022: Prednisone 5 mg p.o. daily Clonidine 0.5 mg p.o. twice daily as needed elevated blood pressure (patient stated that she has not taken this medication for 2 weeks) Lisinopril 40 mg p.o. daily Lipitor 40 mg p.o. daily Plaquenil 200 mg p.o. twice daily for rheumatoid arthritis Hydrochlorothiazide 25 mg p.o. daily Sulfasalazine 500 mg tablets 2 p.o. twice a day Habits: None Family history: Negative for strokes Review of systems: The patient reported heartburn/reflux with aspirin. She denies headaches, speech difficulty, visual difficulty, focal weakness, chest pain, shortness of breath, or abdominal pain Vitals/I&O/Wt Last Vital Signs Temp 98.1 F 12/25/22 08:00 Pulse 73 12/25/22 08:00 Resp 14 12/25/22 08:00 BP 149/81 12/25/22 08:00 Pulse Ox 98 12/25/22 08:00 O2 Del Method Room Air 12/25/22 08:00 12/24/22 12/25/22 12/25/22 22:59 06:59 14:59 Intake Total 740 / 740 0 / 740 Output Total 400 / 400 200 / 200 Balance 740 / 740 -400 / 340 -200 / -200 Weight last 48 hrs Weight 159 lb Weight 159 lb Physical Exam Narrative: The patient is currently alert and oriented x3.? Speech fluent.? Head normocephalic.? Neck supple.? Head nontender.? Cranial nerves II through XII intact.? Pupils 4 mm.? Pupils round reactive to light and accommodation.? Extraocular movements intact.? There were no nystagmus.? Visual nair full via confrontation.? Patient wears glasses.? Motor examination 5/5 bilaterally.? There was no drift.? [id number] and mxem-hizl-ravm maneuvers were within normal limits without signs of ataxia.? Deep tendon reflexes 2+ bilaterally.? Plantar responses flexor bilaterally.? There was no clonus.? Sensory examination was intact to touch and pinprick.? There was no extinction on double sensory stimulation.? Throat clear.? Lungs clear.? Heart regular rhythm and rate.? Abdomen soft & bowel sounds positive. extremities were negative for clubbing cyanosis or edema. Data 12/24/22 10:13 12/24/22 10:13 A&P Assessment and plan (1) TIA (transient ischemic attack): (2) Occlusion of left internal carotid artery: Plan 65-year-old female with history of rheumatoid arthritis.? This morning on 12/24/2022 at approximately 8:30 AM the patient experienced reports of elevated blood pressure with blurred vision and difficulty writing using her right hand for a few moments which resolved.? Code stroke was initiated at 10:23 AM NIH score = 0 on neurological assessment at 10:40 AM.? Clinical history suggestive of: 1. Left subcortical versus cortical TIA, resolved (noncontrast head CT scan performed on 12/24/2022 was negative). 2.? History of rheumatoid arthritis 3.? History of hypokalemia (patient's potassium within normal limits on 12/24/2022) 4.? History of hypothyroid 5.? History of chronic pain addressed by another physician 6. Occlusion of the left internal carotid artery 7. Hypertension Plan: 1. Recommend discontinuing aspirin secondary to patient reporting heartburn/gastroesophageal reflux when taking aspirin 2. Continue Plavix 75 mg p.o. every morning with food 3. Continue Lipitor 40 mg p.o. q. evening 4. Follow-up hypercoagulable lab 5. Agree with the patient undergoing transesophageal echo with bubble study and cancel order for transesophageal echo 6. Adjust medications as needed for hypertension 7. Patient stable from neurological standpoint for discharge planning 8. Please schedule patient for follow-up in the [facility] neurology clinic 2 weeks after discharge Attestations Medical Necessity Statement*: The patient was seen by neurology for TIA and code stroke Coding Level of Care Code 19977 Diagnoses TIA (transient ischemic attack) G45.9 Occlusion of left internal carotid artery I65.22
--- NOTE | 2022-12-25 14:40 | PC.NURSE ---
Patient Behavior: Nurse Franks reported to this nurse that pt demanding to leave AMA due to not getting any answers from any of the nursing staff. This nurse went in to pt room to discuss in detail what exactly leaving AMA entailed. AMA process explained thoroughly to pt. After explaining in detail, pt decided against leaving AMA but still demanded to speak with the doctor. Dr. Santana notified, replied in a timely manner, and came to floor. Dr. Santana and this nurse went to pt's room to discuss results and discharge. Pt's present at bedside. Dr. Santana explained in detail, the need for pt to please remain calm and patient while echo results are being finalized and read by nursing secretary. Pt stated, I understand why I need to wait for the results but I am ready to get on out of here. I have been here for 2 days and been through bookuh tests and I am ready to go home! Dr. Santana calmly explained to pt that he would personally call cardiology to get results directly from nursing secretary. Pt continued to become agitated with Dr. Santana because results from echo were not back. Dr. Santana reiterated the same information and asked for a short period of time to contact nursing secretary. Pt then stated, Adios amigo! Dr. Santana and this nurse closed conversation by informing pt that the nursing secretary would be contacted upon leaving the room. As Dr. Santana and this nurse began to walk out of the room, pt raised voice and stated, Just get out of my room! I mean it! Get out of here! I am tired of this! Dr. Santana and this nurse exited the room. Dr. Santana currently trying to get in touch with cardiology. Discharge orders placed for pt.
--- NOTE | 2022-12-25 14:51 | PM.DCS ---
Discharge Providers Date of Admission: 12/24/22 16:08 Date of Discharge: December 25, 2022 Attending Provider at Admission: Alexis Shrestha MD Attending Provider at Discharge: Carlos Santana MD Primary Care Provider: Gil Hatfield Diagnoses at Discharge Discharge Diagnosis (1) TIA (transient ischemic attack): Status: Acute (2) Occlusion of left internal carotid artery: Status: Acute Reason for Visit Reason for Visit: abn labs Hospital Course Hospital Course Asim is a 67 year old female with a past medical history significant for rheumatoid arthritis, chronic pain, hypertension, and hyperlipidemia who presents with blurred vision, right hand ataxia, and elevated blood pressure, she was admitted for the management of TIA, neurology was on board, CT head without contrast failed to show any acute intracranial pathology:, CTA head and neck: Showed?: Occluded intracranial segment left ICA. MRI head without contrast: No evidence for an acute infarct. 2D echo was done with bubble study: Which failed to show any intracardiac shunt: LV systolic function is normal with EF 55 to 60%.?Grade 1 diastolic dysfunction.?Mild mitral regurgitation.?Mild tricuspid regurgitation: carotid duplex BI: Mild stenosis involving the origin of the right and left ICA (less than 50%). Initially patient was kept on aspirin Plavix statin, later aspirin was discontinued because of symptoms of heart burn/GERD, patient was just continued on Plavix , at the time of discharge patient has no neurological deficit. She was continued on home antihypertensive medication. Hypercoagulability work-up has been initiated, labs have been collected and results are pending, she will follow neurology as outpatient.Overall patient responded well to her medical management she was discharged in stable condition to home. Physical Exam Const: COMMON NORMALS: patient oriented x3 HENMT: COMMON NORMALS: normocephalic and atraumatic HEAD & SCALP: normocephalic and atraumatic Resp: COMMON NORMALS: clear to auscultation bilaterally AUSCULTATION: clear to auscultation bilaterally Cardio: COMMON NORMALS: regular rate, regular rhythm, S1 normal heart sound present, S2 normal heart sound present, No gallops present (Cardio), No murmurs present (Cardio), No rub (Cardio) and Peripheral pulses 2+ throughout RATE: regular rate RHYTHM: regular rhythm HEART SOUNDS: S1 normal heart sound present and S2 normal heart sound present PERIPHERAL PULSES: Peripheral pulses 2+ throughout GI: COMMON NORMALS: Normal to inspection, nondistended, normoactive bowel sounds present, Soft to palpation, non-tender, No hepatosplenomegaly present and no masses AUSCULTATION: Yes normoactive bowel sounds PALPATION: Yes Soft to palpation and Yes No hepatosplenomegaly present RECTAL EXAM: deferred Extremity: COMMON NORMALS: no clubbing, cyanosis or edema and no pedal edema Neuro: COMMON NORMALS: patient oriented x3 Discharge Data Studies Completed and Pending Completed Studies During Hospitalization Category Date Time Status CT angio headneck* [id number]/40723 Stat Cat Scan 12/24/22 13:[address] head thrombolytic 33129 Stat Cat Scan 12/24/22 10:26 Completed MR head wo con* [id number] Routine MRI 12/25/22 07:46 Completed US carotid duplex bilateral [CV carotid duplex BI* Ultrasound 12/24/22 11:19 Completed 07138] Stat US echo complete [CV. echo complete* [id number]] Stat Ultrasound 12/24/22 11:23 Completed Pending at discharge Category Date Time Status Antithrombin III Activity Routine Lab 12/25/22 14:21 Received Beta 2 Glycoprotein I IGA AB Routine Lab 12/25/22 14:21 Received CARDIOLIPIN AB (IGA,IGG,IGM) Routine Lab 12/25/22 14:21 Received Factor 5 Leiden Mutation Routine Lab 12/25/22 14:21 Received Homocysteine Routine Lab 12/25/22 14:21 Received Lupus Inhibitor Panel Anticoag Routine Lab 12/25/22 14:21 Received Miscellaneous Test Routine Lab 12/24/22 15:57 Received PROTEIN C, ACTIVITY Routine Lab 12/25/22 14:21 Received PROTEIN S, ACTIVITY Routine Lab 12/25/22 14:21 Received PROTHROMBIN GENE [PROTHROMBIN (FACTOR II) [id number]] Lab 12/25/22 14:21 Received Routine CV. echo lmt wo/w bubble [id number] Routine Ultrasound 12/25/22 12:09 Taken Radiology Impressions Head CT 12/24/22 10:26 IMPRESSION: No acute intracranial abnormality. ASSESSMENT: ASPECTS ([place] Stroke Program Early CT Score) is 10. Carotid Doppler Study 12/24/22 11:19 IMPRESSION: 1. Mild stenosis involving the origin of the right and left ICA (less than 50%). 2. There is evidence of turbulent flow with more elevated systolic flow velocities more distally within the right and left ICA that may be due to tortuosity of the vessels or more significant stenosis (50-69%). Consider CTA of the neck for further evaluation. 3. Findings inconclusive for left external carotid artery stenosis which can also be reassessed on CTA of the neck. REFERENCES: SRU CRITERIA. The degree of internal carotid artery stenosis is based on criteria defined by the Society of Radiologists in Ultrasound (SRU). Normal is no stenosis. Mild is less than 50% stenosis. Moderate is 50-69% stenosis. Severe is greater than 69% stenosis to near occlusion. Near occlusion is a markedly narrowed lumen. Total occlusion is no detectable patent lumen. Head/Neck CTA 12/24/22 13:48 IMPRESSION: 1. Occluded intracranial segment left ICA. 2. Remainder of the CT of the brain is unremarkable. IMPRESSION: Occluded left ICA just distal to its origin. REFERENCES: NASCET CRITERIA. The degree of stenosis in the cervical segment of the internal carotid artery is based on NASCET criteria. Normal is no stenosis. Mild is less than 50% stenosis. Moderate is 50-69% stenosis. Severe is 70% to 99% stenosis. Total occlusion is no detectable patent lumen. ADDENDUM: 12/24/22 1514 THIS REPORT CONTAINS FINDINGS THAT MAY BE CRITICAL TO PATIENT CARE. The findings were verbally communicated via telephone conference with TRISHA STEPHEN at 3:12 PM CDT on 12/24/2022. The findings were acknowledged and understood. Head MRI 12/25/22 07:46 IMPRESSION: 1. Diffusion-weighted imaging is normal. No evidence for an acute infarct. 2. Abnormal signal and lack of flow void in the LEFT intracranial carotid artery corresponds to the findings on the recent CTA from 12/24/2022. Consistent with an occluded LEFT ICA. Lack of diffusion abnormality may be related to an intact [place] and a small persistent lumen of the ICA. This was better seen on the CTA [place] performed on 12/24/2022. 3. Moderate small vessel ischemic type changes noted bilaterally. Slightly more than expected for patient's age. Laboratory Results WBC 8.9 10^3/uL (4.0-10.0) 12/24/22 10:13 RBC 3.85 10^6/uL (4.1-5.3) L 12/24/22 10:13 Hgb 12.2 g/dL (11.5-15.3) 12/24/22 10:13 Hct 36.1 % (37.0-47.0) L 12/24/22 10:13 MCV 93.8 fl (81-99) 12/24/22 10:13 MCH 31.7 pg (28.0-34.0) 12/24/22 10:13 MCHC 33.8 g/dL (30.0-36.0) 12/24/22 10:13 RDW 12.0 % (12.1-15.1) L 12/24/22 10:13 Plt Count 389 10^3/cmm (130-400) 12/24/22 10:13 MPV 9.3 fL (7.4-10.4) 12/24/22 10:13 Neut % (Auto) 35.7 % 12/24/22 10:13 Lymph % (Auto) 49.0 % 12/24/22 10:13 [place] % (Auto) 13.8 % 12/24/22 10:13 Eos % (Auto) 0.0 % 12/24/22 10:13 Baso % (Auto) 0.6 % 12/24/22 10:13 Neut # (Auto) 3.19 10^3/uL (1.8-7.7) 12/24/22 10:13 Lymph # (Auto) 4.4 10^3/uL (0.8-4.8) 12/24/22 10:13 [place]ran # (Auto) 1.2 10^3/uL (0.2-0.9) H 12/24/22 10:13 Eos # (Auto) 0.0 10^3/uL (0.0-0.8) 12/24/22 10:13 Baso # (Auto) 0.1 10^3/uL (0.0-0.1) 12/24/22 10:13 Nucleated RBC % (auto) 0 % 12/24/22 10:13 Nucleated RBCs # 0.0 /100WBC 12/24/22 10:13 PT 12.90 SECONDS (12.1-14.9) 12/24/22 10:13 INR 0.95 (0.8-1.2) 12/24/22 10:13 APTT 33.1 SECONDS (23.9-36.7) 12/24/22 10:13 Sodium 138 mmol/L (136-145) 12/24/22 10:13 Potassium 3.7 mmol/L (3.5-5.1) 12/24/22 10:13 Chloride 101 mmol/L (98-107) 12/24/22 10:13 Carbon Dioxide 26 mmol/L (22-29) 12/24/22 10:13 Anion Gap 14.7 (5-19) 12/24/22 10:13 BUN 9 mg/dL (8-23) 12/24/22 10:13 Creatinine 0.6 mg/dL (0.5-0.9) 12/24/22 10:13 GFR Calculation 99.1 mL/min (90-130) 12/24/22 10:13 Glucose 99 mg/dL (65-115) 12/24/22 10:13 POC Glucose 108 mg/dL (70-110) 12/24/22 10:33 Estimat Average Glucose 103 12/24/22 10:13 Hemoglobin A1c 5.2 % (4.0-6.0) 12/24/22 10:13 Calculated Osmolality 285 mOsm/kg (285-295) 12/24/22 10:13 Calcium 8.9 mg/dL (8.5-10.5) 12/24/22 10:13 Total Bilirubin 0.3 mg/dL (0.15-1.2) 12/24/22 10:13 AST 49 U/L (0-32) H 12/24/22 10:13 ALT 37 U/L (0-33) H 12/24/22 10:13 Alkaline Phosphatase 114 U/L (35-105) H 12/24/22 10:13 Total Protein 6.8 g/dL (6.6-8.7) 12/24/22 10:13 Albumin 3.8 g/dL (3.5-5.2) 12/24/22 10:13 Globulin 3.0 g/dL (1.3-4.6) 12/24/22 10:13 Triglycerides 177 mg/dL (0-150) H 12/24/22 10:13 Cholesterol 143 mg/dL (0-200) 12/24/22 10:13 LDL Cholesterol, Calc 75 mg/dL (50-129) 12/24/22 10:13 HDL Cholesterol 33 mg/dL (60-100) L 12/24/22 10:13 LDL/HDL Ratio 2.27 RATIO (0.00-3.22) 12/24/22 10:13 Cholesterol/HDL Ratio 4.33 mg/dL (0.0-4.40) 12/24/22 10:13 Urine Color Light yellow (Yellow) 12/24/22 11:20 Urine Appearance Clear (CLEAR) 12/24/22 11:20 Urine pH 8 (5-7) H 12/24/22 11:20 Ur Specific [place] 1.010 (1.005-1.030) 12/24/22 11:20 Urine Protein Neg (Negative) 12/24/22 11:20 Urine Glucose (UA) Norm (Normal) 12/24/22 11:20 Urine Ketones Negative (Negative) 12/24/22 11:20 Urine Blood Neg (Negative) 12/24/22 11:20 Urine Nitrate Negative (Negative) 12/24/22 11:20 Urine Bilirubin Neg (Negative) 12/24/22 11:20 Prot Sulfosalicylic Acd Negative (Negative) 12/24/22 11:20 Urine Urobilinogen Norm mg/dL (Negative) 12/24/22 11:20 Ur Leukocyte Esterase Negative (Negative) 12/24/22 11:20 Urine Opiates Screen Negative ng/mL (Negative) 12/24/22 11:20 Ur Barbiturates Screen Negative ng/mL (Negative) 12/24/22 11:20 Ur Phencyclidine Scrn Negative ng/mL (Negative) 12/24/22 11:20 Ur Amphetamines Screen Negative ng/mL (Negative) 12/24/22 11:20 U Benzodiazepines Scrn Negative ng/mL (Negative) 12/24/22 11:20 Urine Cocaine Screen Negative ng/mL (Negative) 12/24/22 11:20 U Marijuana (THC) Screen Negative ng/mL (Negative) 12/24/22 11:20 Vitals Last Vital Signs Temp 98.1 F 12/25/22 12:04 Pulse 74 12/25/22 14:04 Resp 17 12/25/22 12:04 BP 132/67 12/25/22 12:04 Pulse Ox 95 12/25/22 14:04 O2 Del Method Room Air 12/25/22 08:00 Discharge Plan Discharge Patient Disposition: Home Condition: Stable Prescriptions: New Plavix 75 mg tablet 75 mg PO DAILY Qty: 30 3RF Continued doxycycline monohydrate 100 mg capsule 100 mg PO BID Qty: 14 0RF Rx Instructions: for 7 days (rx filled 12/20/22) hydroxychloroquine 200 mg tablet 200 mg PO BID Qty: 60 3RF Hold Instructions: Doctor's Order Rx Instructions: medication on hold as of 12/21/22 per pt omeprazole 20 mg capsule,delayed release(DR/EC) 20 mg PO DAILY Qty: 30 3RF prednisone 5 mg tablet 5 mg PO DAILY Qty: 90 1RF Rx Instructions: medication on hold as of 12/21/22 per pt lisinopril 40 mg tablet 40 mg PO DAILY Qty: 30 3RF Hold Instructions: Doctor's Order Rx Instructions: medication on hold as of 12/21/22 per pt clonidine HCl 0.1 mg tablet 0.1 mg PO BID PRN (Reason: hypertensive emergency) Qty: 60 0RF Rx Instructions: may use for Blood pressure greater than 180/100. hydrochlorothiazide 25 mg tablet 25 mg PO DAILY Qty: 90 3RF Hold Instructions: Doctor's Order Rx Instructions: medication on hold as of 12/21/22 per pt atorvastatin 40 mg tablet 40 mg PO DAILY Qty: 90 3RF Rx Instructions: medication on hold as of 12/21/22 per pt lorazepam 0.5 mg tablet 0.5 mg PO BID PRN (Reason: anxiety, muscle spasm) Qty: 30 0RF tramadol 50 mg tablet 50 mg PO TID Qty: 90 3RF potassium chloride 10 mEq capsule, extended release 10 meq PO DAILY Qty: 7 0RF [employer]ink See Rx Instructions .ROUTE .COMPLEX Rx Instructions: drinks once a day prn sulfasalazine 500 mg tablet See Rx Instructions .ROUTE .COMPLEX Rx Instructions: take 2 tabs in am and 1 pm x 1 week then go to 2 tabs twice daily. give with food (meal/snack) medication on hold as of 12/21/22 per pt levothyroxine 112 mcg tablet 112 mcg PO QAM Discharge Orders: Discharge Order (Routine); Ordered 12/25/22 Ordered By: Carlos Santana Referrals: Federico Nicole MD [Physician] - 12/27/22 1:00 pm Gil Hatfield NP [Primary Care Provider] - 12/28/22 8:00 am Patient Instructions: Clopidogrel (By mouth), Transient Ischemic Attack (DC), Hypokalemia (DC), Opioid Safety Discharge Attestations Time Spent in Discharge Care*: greater than 30 min Quality Metrics Clinical Quality Measures [ No reported AMI, CVA or VTE this stay] Coding Level of Care Code Acute Code for Chg Fwd Diagnoses TIA (transient ischemic attack) G45.9 Occlusion of left internal carotid artery I65.22
[2022-12-25 14:53] LABS: Homocysteine 11.89
[2022-12-27 02:19] LABS: Beta 2 Glycoprotein I IGA AB <2.0 U/mL; CARDIOLIPIN AB (IGA) <2.0 APL-U/mL; CARDIOLIPIN AB (IGG) <2.0 GPL-U/mL; CARDIOLIPIN AB (IGM) <2.0 MPL-U/mL
[2022-12-28 22:49] LABS: Lupus Hexagonal Phas Confirm NEGATIVE (NEGATIVE); PTT-LA-Screen 43 sec (< OR = 40)
[2022-12-28 23:00] LABS: PROTEIN S, ACTIVITY 74 % normal (60-140)
[2022-12-30 02:15] LABS: Factor 5 Leiden Mutation NEGATIVE
[2022-12-30 21:04] LABS: Antithrombin III Activity 127 % normal (80-135); PROTEIN C, ACTIVITY 111 % normal (70-180)
[2022-12-31 18:20] LABS: PROTHROMBIN (FACTOR II) 20210G NEGATIVE
== END 2022-12-25 15:20 | disposition home or self-care (01) ==
LOC: ER 15:14 → MEDSURG 16:08
PROVIDERS: Psychiatry & Neurology Neurology; Admitting Provider Internal Medicine; Emergency Provider Nurse Practitioner; PCP Clinical Nurse Specialist Adult Health; Visit Provider Internal Medicine
DX: M06.041 Rheumatoid arthritis without rheumatoid factor, right hand (principal); G89.29 Other chronic pain; E03.9 Hypothyroidism, unspecified; I10 Essential (primary) hypertension; Z79.891 Long term (current) use of opiate analgesic; E78.5 Hyperlipidemia, unspecified; Z79.52 Long term (current) use of systemic steroids; I65.22 Occlusion and stenosis of left carotid artery
CPT/HCPCS: 36415; 36416; 70450; 70496; 70498; 70551; 80053; 80061; 80306; 81003; 81241; 82962; 83036; 83090; 85025; 85210; 85300; 85303; 85306; 85610; 85613; 85730; 86146; 86147; 93005; 93306; 93880; 96361; 96372; 96374; 99285; C8924; G0378; J1650; J7040; Q9967

== ENCOUNTER → 2022-12-27 12:45 | Outpatient (BNVA) | payer MEDICARE, OTHER, SELFPAY | PROVIDERS: PCP Clinical Nurse Specialist Adult Health; Visit Provider Psychiatry & Neurology Neurology | DX: I65.22 Occlusion and stenosis of left carotid artery (principal); R51.9 Headache, unspecified; I10 Essential (primary) hypertension; Z86.73 Personal history of transient ischemic attack (TIA), and cerebral infarction without residual deficits | CPT/HCPCS: 99212 ==

== ENCOUNTER → 2022-12-28 08:56 | Outpatient (BNVA) | payer MEDICARE, OTHER, SELFPAY | PROVIDERS: PCP Clinical Nurse Specialist Adult Health; Visit Provider Clinical Nurse Specialist Adult Health | DX: I10 Essential (primary) hypertension (principal); E87.6 Hypokalemia; M05.9 Rheumatoid arthritis with rheumatoid factor, unspecified; Z79.899 Other long term (current) drug therapy | CPT/HCPCS: 80048 ==

== ENCOUNTER → 2023-01-05 08:08 | Outpatient (BNVA) | payer MEDICARE, OTHER, SELFPAY | PROVIDERS: PCP Clinical Nurse Specialist Adult Health; Visit Provider Clinical Nurse Specialist Adult Health | DX: G45.1 Carotid artery syndrome (hemispheric) (principal); R51.9 Headache, unspecified; I63.232 Cerebral infarction due to unspecified occlusion or stenosis of left carotid arteries; M06.041 Rheumatoid arthritis without rheumatoid factor, right hand; M06.042 Rheumatoid arthritis without rheumatoid factor, left hand; Z79.899 Other long term (current) drug therapy | CPT/HCPCS: 80076; 82565; 85025; 85651; 86140 ==

== ENCOUNTER 2023-01-08 08:48 | Oncology outpatient (recurring) (ONCR) | payer MEDICARE, OTHER, SELFPAY | END 2023-01-19 23:59 | disposition home or self-care (01) | PROVIDERS: PCP Clinical Nurse Specialist Adult Health; Visit Provider Internal Medicine Medical Oncology | DX: R79.1 Abnormal coagulation profile (principal) | CPT/HCPCS: 99203 ==

== ENCOUNTER 2023-03-09 12:44 | Outpatient (CLI) | payer MEDICARE, SELFPAY ==
--- NOTE | 2023-03-09 13:00 | USCV_ITS ---
Danyell Dailey ([facility]) Age: 67 Gender: F : 1955 Exam Date: 03/09/2023 13:12 Ordering Phys: Wilver Oconnell DO Technologist: Raquel Kemp [place] [facility] [place]: lower extremity tingling RIGHT LEFT Brachial 143.00 mmHg Brachial 151.00 mmHg Pressure (mmHg) Waveform Pressure (mmHg) Waveform 151.00 CUT IN WORKER 186.00 176.00 DPA 175.00 1.00 Ankle/Brachial Index 1.23 141.00 Pre-Exercise Toe Pressure 135.00 0.93 Pre-Exercise Toe/Brachial Index 0.89 FINDINGS Resting EDILBERTO of 1.0 on the right side and 1.23 on the left side Resting TBI of 0.93 on the right side and 0.89 on the left side CONCLUSIONS Normal resting ABIs and TBIs bilaterally, suggesting no significant arterial obstruction Dr eHctor Max MD [facility] (Electronically Signed) Final Date: 13 March 2023 08:21 S
== END 2023-03-09 12:45 | disposition home or self-care (01) ==
LOC: RAD 12:53
PROVIDERS: PCP Clinical Nurse Specialist Adult Health; Visit Provider Family Medicine
DX: G45.1 Carotid artery syndrome (hemispheric) (principal); R20.2 Paresthesia of skin; R53.1 Weakness
CPT/HCPCS: 93922

== ENCOUNTER 2023-06-19 09:48 | Outpatient (CLI) | payer MEDICARE, SELFPAY ==
--- NOTE | 2023-06-19 09:51 | MM_ITS ---
WS: [id number] BILATERAL 3D TOMOSYNTHESIS DIGITAL SCREENING MAMMOGRAPHY WITH CAD CLINICAL INFORMATION: Z12.39 - Encounter for other screening for malignant neop... HISTORY: Screening mammogram. No current complaints. COMPARISON: 2012 TECHNIQUE: Bilateral CC and MLO views. FINDINGS: Scattered fibroglandular densities bilaterally. No suspicious focal mass, asymmetry, calcifications, or architectural distortion. No evidence of malignancy. Incidental punctate calcifications LEFT breas t. IMPRESSION: MM/[place] [id number] BI-RADS: 2-Benign FOLLOW UP: 1 Year Follow-up Recommend return to annual screening mammography.
== END 2023-06-19 09:49 | disposition home or self-care (01) ==
LOC: MOBLMAM 09:51
PROVIDERS: PCP Family Medicine; Visit Provider Family Medicine
DX: Z12.31 Encounter for screening mammogram for malignant neoplasm of breast (principal)
CPT/HCPCS: 77063; 77067

== ENCOUNTER → 2023-11-20 10:56 | Outpatient (BNVA) | payer MEDICARE, SELFPAY | PROVIDERS: PCP Family Medicine; Visit Provider Family Medicine | DX: E03.9 Hypothyroidism, unspecified (principal); I10 Essential (primary) hypertension; Z79.899 Other long term (current) drug therapy; M19.90 Unspecified osteoarthritis, unspecified site; Z13.6 Encounter for screening for cardiovascular disorders; R20.0 Anesthesia of skin; M15.4 Erosive (osteo)arthritis | CPT/HCPCS: 80053; 80061; 84443; 85025; 86140 ==

== ENCOUNTER → 2024-06-02 10:58 | Outpatient (BNVA) | payer MEDICARE, SELFPAY | PROVIDERS: PCP Family Medicine; Visit Provider Family Medicine | DX: I10 Essential (primary) hypertension (principal); G89.29 Other chronic pain; Z79.899 Other long term (current) drug therapy; G45.1 Carotid artery syndrome (hemispheric); E03.9 Hypothyroidism, unspecified; M15.4 Erosive (osteo)arthritis | CPT/HCPCS: 80053; 80061; 84443; 86140 ==

== ENCOUNTER → 2024-08-15 10:56 | Outpatient (BNVA) | payer MEDICARE, SELFPAY | PROVIDERS: PCP Family Medicine; Visit Provider Family Medicine | DX: G45.1 Carotid artery syndrome (hemispheric) (principal); I10 Essential (primary) hypertension; M19.90 Unspecified osteoarthritis, unspecified site; G89.29 Other chronic pain; Z79.899 Other long term (current) drug therapy; E03.9 Hypothyroidism, unspecified; R22.1 Localized swelling, mass and lump, neck; Z00.00 Encounter for general adult medical examination without abnormal findings | CPT/HCPCS: 80053; 80061; 83036; 84443; 85025; 86140 ==

== ENCOUNTER 2024-08-26 14:16 | Emergency (ER) | payer MEDICARE, SELFPAY ==
--- NOTE | 2024-08-26 14:17 | XRR_ITS ---
PROCEDURE INFORMATION: Exam: XR Left Knee Exam date and time: 08/26/2024 2:52 PM Clinical indication: Pain; Left; [place] pop in knee; Additional info: Injury TECHNIQUE: Imaging protocol: Radiologic exam of the left knee. Views: 3 views. COMPARISON: No relevant prior studies available. FINDINGS: Bones/joints: Moderate tricompartment narrowing and spurring. No fracture or dislocation. No lytic or sclerotic bone lesion.. Soft tissues: Normal. XR/XR knee LT 3V* [id number] IMPRESSION: Degenerative changes.
[2024-08-26 14:22] VITALS: BP 163/86; PULSE 118; TEMP 36.8; O2SAT 97; BMI 33.2
--- NOTE | 2024-08-26 15:46 | W.ED.EXTPRO ---
HPI - Extremity Problem General: Chief complaint: Extremity Injury, Lower Stated complaint: lt knee inj Time Seen by Provider: 08/26/24 15:31 Source: patient Mode of arrival: ambulatory Limitations: no limitations History of Present Illness: 68-year-old female who states that she had rolled in bed and had felt a pop in her left knee states been having some knee pain since then. States the pains been sharp in nature she denies any other injuries. States she has had some pain with walking states she has been able ambulate with her walker. Associated symptoms: Deny chest pain, fever(s) or rash Related Data Home Medications ?Medication ?Instructions ?Recorded ?Confirmed aspirin 81 mg tablet,delayed 81 mg PO DAILY 01/25/23 07/05/23 release (Adult Aspirin Regimen) Previous Rx's ?Medication ?Instructions ?Recorded tizanidine 4 mg capsule 4 mg PO BID PRN muscle spasticity 12/27/22 #120 caps amoxicillin 500 mg-potassium 1 tab PO TID 10 days #30 tabs 07/05/23 clavulanate 125 mg tablet (Augmentin) amlodipine 5 mg tablet 5 mg PO DAILY bp #90 tabs 11/26/23 levothyroxine 112 mcg tablet See Rx Instructions .Route 12/31/23 .COMPLEX #90 tabs omeprazole 20 mg capsule,delayed 20 mg PO DAILY #90 caps 05/14/24 release lorazepam 0.5 mg tablet 0.5 mg PO BID PRN anxiety #60 tabs 05/16/24 lisinopril 40 mg tablet 40 mg PO DAILY #90 tabs 05/26/24 tramadol 50 mg tablet 50 mg PO TID pain #90 tabs 08/08/24 prednisone 5 mg tablet 5 mg PO DAILY inflammatory 08/15/24 arthritis #30 tabs Allergies Allergy/AdvReac Type Severity Reaction Status Date / Time azithromycin Allergy Intermediate Unknown Verified 08/26/24 14:27 codeine Allergy ADR-Gastrointestinal Verified 08/26/24 14:27 Upset gabapentin (From Neurontin) Allergy unknown Verified 08/26/24 14:27 Review of Systems Const: Denies: fever(s), chills, body aches or change in appetite ENMT: Denies: throat pain or dental pain Card: Denies: chest pain Resp: Denies: dyspnea GI: Denies: abdominal pain, nausea, vomiting or diarrhea Musc: Reports: extremity pain; Denies: neck pain or back pain Skin/Breast: Denies: rash Neuro: Denies: headache(s) PFSH ED PFSH: Medical History Occlusion of left internal carotid artery TIA (transient ischemic attack) Erosive osteoarthritis of both hands Seronegative rheumatoid arthritis of both hands Osteoarthritis of knees, bilateral Osteoarthritis of hands, bilateral Osteoarthritis of carpometacarpal (CMC) joint of both thumbs Immunization counseling High risk medication use Inflammatory arthritis Hypertension Joint pain Surgical History History of shoulder surgery left Family History Other Bleeding disorder Cancer Diabetes Family history of premature coronary artery disease Hyperlipidemia Stroke Denies family history of Rheumatoid arthritis Lupus CAD (coronary artery disease) Anesthesia complication Social History Smoking and tobacco/nicotine status: never used tobacco/nicotine Alcohol intake: never Substance/Drug Use: never Physical Exam Const: COMMON NORMALS: no acute distress, patient oriented x3 and healthy appearing HENMT: COMMON NORMALS: normocephalic and atraumatic HEAD & SCALP: normocephalic and atraumatic Neck/C-Spine: COMMON NORMALS: full ROM and supple Chest: COMMONS NORMALS: normal inspection of the chest Resp: COMMON NORMALS: normal respiratory effort Cardio: COMMON NORMALS: regular rate RATE: regular rate Extremity: NARRATIVE EXTREMITY EXAM: Tenderness noted to left knee no obvious deformity has full range of motion Neuro: COMMON NORMALS: patient oriented x3, moves all extremities and no focal motor deficits Psych: COMMON NORMALS: mental status grossly normal, Normal thought process present and cooperative THOUGHT PROCESS: Normal thought process present Skin: COMMON NORMALS: no rashes or lesions noted and no wounds GENERAL SKIN EXAM: no rashes or lesions noted Course Vital Signs: Vital signs: Vital Signs Temperature 98.2 F 08/26/24 14:22 Pulse Rate 118 H 08/26/24 14:22 Blood Pressure 163/86 08/26/24 14:22 Pulse Oximetry 97 08/26/24 14:22 Oxygen Delivery Me thod Room Air 08/26/24 14:22 MDM - Extremity (Nontraumatic) Medical Decision Making Patient presents here with knee pain x-ray here is negative she is stable for discharge she is to use her walker follow-up with orthopedics. Medical Records I reviewed the patient's medical records. Lab Data Radiology Impressions Knee X-Ray 08/26/24 14:17 IMPRESSION: Degenerative changes. All radiology interpretation(s) finalized by discharge Discharge Plan Discharge Patient Disposition: Home Clinical Impression: Left knee sprain Clinical Impression: (Ruled Out): Inflammatory arthritis Condition: Stable Prescriptions: No Action tizanidine 4 mg capsule 4 mg PO BID PRN (Reason: muscle spasticity) Qty: 120 3RF Rx Instructions: take 1-2 tablets at bedtime aspirin [Adult Aspirin Regimen] 81 mg tablet,delayed release (DR/EC) 81 mg PO DAILY amoxicillin-pot clavulanate [Augmentin] 500-125 mg tablet 1 tab PO TID 10 Days Qty: 30 0RF prednisone 5 mg tablet 5 mg PO DAILY Qty: 30 1RF amlodipine 5 mg tablet 5 mg PO DAILY Qty: 90 3RF levothyroxine 112 mcg tablet See Rx Instructions .ROUTE .COMPLEX Qty: 90 3RF Dose Instruction: TAKE 1 TABLET BY MOUTH EVERY DAY Rx Instructions: TAKE 1 TABLET BY MOUTH EVERY DAY omeprazole 20 mg capsule,delayed release(DR/EC) 20 mg PO DAILY Qty: 90 3RF lorazepam 0.5 mg tablet 0.5 mg PO BID PRN (Reason: anxiety) Qty: 60 5RF lisinopril 40 mg tablet 40 mg PO DAILY Qty: 90 3RF tramadol 50 mg tablet 50 mg PO TID Qty: 90 3RF Discharge Orders: Discharge ED (Routine); Ordered 08/26/24 Ordered By: Lulú Partida Referrals: Immanuel Matthews DO [Physician] - 4-7 days Wilver Oconnell DO [Primary Care Provider] - Discharge Diet: Advance as tolerated Discharge Activity: Increase activity as tolerated Patient Instructions: Knee Sprain (ED) Print Language: Azeri Coding Level of Care Code [facility] [employer] Director for Maura Costello
[2024-08-26 15:54] VITALS: BP 146/63; PULSE 100; O2SAT 97
== END 2024-08-26 15:57 | disposition home or self-care (01) ==
PROVIDERS: Emergency Provider Emergency Medicine; PCP Family Medicine
DX: S83.92XA Sprain of unspecified site of left knee, initial encounter (principal); Z03.89 Encounter for observation for other suspected diseases and conditions ruled out; Z79.82 Long term (current) use of aspirin; Z86.73 Personal history of transient ischemic attack (TIA), and cerebral infarction without residual deficits; I10 Essential (primary) hypertension; X58.XXXA Exposure to other specified factors, initial encounter
CPT/HCPCS: 73562; 99283

== ENCOUNTER 2024-08-28 08:48 | Outpatient (CLI) | payer MEDICARE, SELFPAY ==
--- NOTE | 2024-08-28 09:00 | US_ITS ---
WS: [id number] INDICATION: Ultrasound soft tissue area of concern LEFT neck and shoulder. TECHNIQUE: Ultrasound soft tissue of concern LEFT neck and shoulder FINDINGS: Ultrasound to the areas of concern LEFT neck and shoulder. Normal underlying subcutaneous and muscular tissue. No cystic or solid lesions. No suspicious lesions to target for biopsy. Comparison RIGHT shoulder is normal in appearance. US/US soft tissue head neck 94000 IMPRESSION: No suspicious findings in the areas of concern
== END 2024-08-28 08:49 | disposition home or self-care (01) ==
LOC: RAD 08:48
PROVIDERS: PCP Family Medicine; Visit Provider Family Medicine
DX: R22.1 Localized swelling, mass and lump, neck (principal)
CPT/HCPCS: 76536

== ENCOUNTER → 2025-01-09 10:32 | Outpatient (BNVA) | payer MEDICARE, SELFPAY | PROVIDERS: PCP Family Medicine; Visit Provider Family Medicine | DX: E03.9 Hypothyroidism, unspecified (principal) | CPT/HCPCS: 84443 ==

== ENCOUNTER → 2025-07-03 09:48 | Outpatient (BNVA) | payer MEDICARE, SELFPAY | PROVIDERS: PCP Family Medicine; Visit Provider Family Medicine | DX: M19.90 Unspecified osteoarthritis, unspecified site (principal); Z79.899 Other long term (current) drug therapy; I10 Essential (primary) hypertension; G89.29 Other chronic pain; M15.4 Erosive (osteo)arthritis; E03.9 Hypothyroidism, unspecified | CPT/HCPCS: 80053; 80061; 83036; 84443; 85025 ==